=== PATIENT | male | born 1945 | race Caucasian/White ===

== ENCOUNTER 2016-10-19 09:12 | Inpatient (IN) | payer MEDICARE ==
[~2016-10-19] VITALS: Ht 180.3 cm; Wt 88.0 kg
[~2016-10-19 09:12] MED LIST: ASPIRIN EC81 M1 PO; AVODART0.5 MG PO; GLUCOPHAGE500 MG PO; HYDROCODON-ACE1 EAC3 PO; LIPITOR10 MG PO; LISINOPRIL5 MG PO; MAG-OXIDE400 MG PO; MIRALAX527 GM PO; PREVACID30 MG PO
[2016-10-19 10:25] LABS: BASOPHILS 0.1 % (0.0-2.0); EOSINOPHILS 0.1 % (0-7); HEMOGLOBIN 15.2 g/dL (13.5-17.5); IMMATURE GRANULOCYTES 0.5 % (0-5); LYMPHOCYTES 19.3 % (15-50); MCH 31.3 pg (26.0-34.0); MCHC 33.8 g/dL (31.0-37.0); MCV 92.6 fL (80.0-100.0); MEAN PLATELET VOLUME 10.8 fL (7.4-10.4); MONOCYTES 4.4 % (2-11); NEUTROPHILS 75.6 % (40-80); RBC 4.86 10x6/uL (4.20-6.10); WBC 14.4 10x3/uL (4.8-10.8)
[2016-10-19 10:27] LABS: PLATELET COUNT 239 10x3/uL (130-400)
[2016-10-19 10:46] LABS: APPEARANCE HAZY (CLEAR); BACTERIA FEW /hpf (NONE SEEN); BILIRUBIN NEGATIVE (NEGATIVE); COLOR YELLOW (YELLOW); EPITHELIAL CELLS 0-5 /hpf (0-5); GLUCOSE NEGATIVE (NEGATIVE); GRANULAR CAST RARE /lpf (NONE SEEN); HYALINE CAST 0-5 /lpf (NONE SEEN); KETONE NEGATIVE (NEGATIVE); LEUKOCYTE ESTERASE TRACE (NEGATIVE); MUCUS >1+ /lpf (NONE SEEN); NITRITE NEGATIVE (NEGATIVE); PROTEIN NEGATIVE (NEGATIVE); RED CELLS - URINE 0-5 /hpf (0-5); UROBILINOGEN NORMAL (NORMAL); WHITE CELLS - URINE 0-5 /hpf (0-5)
[2016-10-19 10:47] LABS: ALBUMIN 4.5 g/dL (3.4-5.0); ANION GAP 19.3 mmol/L (8-16); BILIRUBIN - TOTAL 0.56 mg/dL (0.2-1.3); CALCIUM 9.8 mg/dL (8.5-10.1); CARBON DIOXIDE 23.9 mmol/L (21.0-32.0); CREATININE - SERUM 1.4 mg/dL (0.6-1.3); POTASSIUM - SERUM 4.2 mmol/L (3.5-5.1); PROTEIN - SERUM 8.6 g/dL (6.4-8.2)
--- NOTE | 2016-10-19 12:48 | NUR ---
Patient Name: DARLENE MITCHELL Admission Status: ER Accout number: [id number] Admission Date: 10-19-2016 : 1945 Admission Diagnosis: SBO Attending: NAYELY Current LOS: 1 Anticipated DC Date: 10-22-2016 Planned Disposition: Home Primary Insurance: [employer] Discharge Planning Comments: Cm met with patient to complete initial discharge planning assessment. Patient gave consent to complete assessment. Patient reports he lives at home independently with his Tatyana Blas. He denied use of community resources or DME at home. Patient plans to return home at discharge. He denied needs for dc at this time. CM will continue to follow and assist with dc plan/needs. Shoeblack: Makenzie Squires RN, [facility] [phone] Is the patient Alert and Oriented? Yes * How many steps to enter\exit or inside your home? 2 * PCP Dr. Ferrell * Pharmacy [facility] [address] * Preadmission Environment Home with Family * ADLs Independent * Equipment None * List name and contact numbers for known caregivers / representatives who currently or will assist patient after discharge: Tatyana Blas - spouse - [phone] * Community resources currently utilized None * Additional services required to return to the preadmission environment? No * Can the patient safely return to the preadmission environment? Yes * Has this patient been hospitalized within the prior 30 days at any hospital? No
--- NOTE | 2016-10-19 13:49 | NUR ---
PATIENT TO ROOM AT THIS TIME. NGT INTACT AND CONNECTED TO LIWS. STATED NOT HURTING MUCH SINCE NGT HAS BEEN PUT IN. FAMILY AT BEDSIDE. PATIENT ADMITTED AND ASSESSED. NO COMPLAINTS AT THIS TIME. IV INTACT. CALL LIGHT WITHIN REACH.
[2016-10-19] MEDS ORDERED: NEURONTIN 400400 MG PO (13:50)
[2016-10-19 14:01] VITALS: BP 129/79; BMI 27.1
--- NOTE | 2016-10-19 15:00 | NUR ---
PATIENT IN BED WITH EYES CLOSED RESTING QUIETLY AT THIS TIME. IV INTACT. NGT INTACT. CALL LIGHT WITHIN REACH.
--- NOTE | 2016-10-19 16:20 | NUR ---
PATIENT IVF AND HEAD OF GLOBAL STRATEGIC PARTNERSHIPS SET UP. EXPLAINED HOW TO USE HEAD OF GLOBAL [employer]ATEGIC PARTNERSHIPS. VERBALIZED UNDERSTANDING. NO COMPLAINTS. CALL LIGHT WITHIN REACH.
--- NOTE | 2016-10-19 18:33 | NUR ---
PATIENT IN BED EYES CLOSED RESTING QUIETLY AT THIS TIME. IV INTACT. NGT INTACT AND TO LIWS. CALL LIGHT WITHIN REACH.
[2016-10-19 19:00] VITALS: BP 132/77
--- NOTE | 2016-10-20 01:30 | NUR ---
GOT CONFIRMATION FROM XRAY THAT NGT WAS CURLED IN STOMACH. MAYUR GAO AND MAYUR MONROE HELPED ME TO STRAIGHTED THE CURL OUT. PUT IN FOR ANOTHER KUB TO CHECK FOR PLACEMENT.
--- NOTE | 2016-10-20 02:08 | NUR ---
PATIENT COMING BACK FROM THE BATHROOM STATED THAT HIS NGT WAS LEAKING. STOPPED THE LEAK. DENIED FURTHER NEEDS AT THAT TIME. @1930. @2100 ADMINISTERED MEDICATION PRECRIBED. PATIENT ALERT AND ORIENTED. IS AT BEDSIDE. NO DISTRESS NOTED. DENIED FURTHER NEEDS AT THIS TIME. INTRUCTED TO CALL IF NEEDED ANYTHING. VERBALIZED UNDERSTANDING. BED LOW, LOCKED, CALL LIGHT IN REACH.
[2016-10-20 04:00] VITALS: BP 127/66
--- NOTE | 2016-10-20 04:56 | NUR ---
RESTING WITH EYES CLOSED, NO DISTRESS NOTED, NG TUBE IN PLACE, SR'S UP, CL IN REACH, AT BEDSIDE
[2016-10-20 06:04] LABS: BASOPHILS 0.1 % (0.0-2.0); EOSINOPHILS 1.2 % (0-7); HEMATOCRIT 37.1 % (42.0-54.0); IMMATURE GRANULOCYTES 0.5 % (0-5); LYMPHOCYTES 40.4 % (15-50); MCH 30.5 pg (26.0-34.0); MCHC 32.3 g/dL (31.0-37.0); MCV 94.2 fL (80.0-100.0); MEAN PLATELET VOLUME 10.8 fL (7.4-10.4); NEUTROPHILS 50.8 % (40-80); RBC 3.94 10x6/uL (4.20-6.10); RDW 14.3 % (11.5-14.5)
[2016-10-20 06:15] LABS: PLATELET COUNT 172 10x3/uL (130-400); WBC 8.5 10x3/uL (4.8-10.8)
[2016-10-20 06:27] LABS: ANION GAP 11.3 mmol/L (8-16); CALCIUM 8.1 mg/dL (8.5-10.1); CARBON DIOXIDE 28.7 mmol/L (21.0-32.0); CREATININE - SERUM 1.3 mg/dL (0.6-1.3)
[2016-10-20 08:04] VITALS: BP 117/62
--- NOTE | 2016-10-20 08:30 | NUR ---
ORAL CONTRAST BEING ADMINISTERED THROUGH PT'S NG TUBE AT THIS TIME. AT BEDSIDE. ASSESMENT PERFORMED PER FLOWSHEET. DENIES QUESTIONS OR CONCERNS AT THIS TIME. SCD'S APPLIED TO BILATERAL LOWER EXTREMETIES. CALL LIGHT IN REACH, WILL CONTINUE WITH PLAN OF CARE.
--- NOTE | 2016-10-20 09:25 | NUR ---
TAKEN TO CT SCAN SCAN AT THIS TIME. WILL MONITOR PT WHEN HE RETURNS TO THE ROOM.
[2016-10-20 12:11] VITALS: BP 154/76
[2016-10-20 15:10] VITALS: BP 109/91
[2016-10-20 15:33] VITALS: Ht 180.3 cm; Wt 88.0 kg
--- NOTE | 2016-10-20 22:50 | NUR ---
REC'D PATIENT SITTING UP IN BED. NO DISTRESS NOTED. RESP EVEN AN UNLABORED. TURNED SUCTION BACK ON AFTER ADMINISTERING MEDS @ 2100. ALSO STARTED HIS FLUIDS AGAIN AND SEWER SEPARATION DESIGNER. DENIED FURTHER NEEDS. INTRUCTED TO CALL IF NEEDED ANYTHING. VERBALIZED UNDERSTANDING. BED LOW, LOCKED, CALL LIGHT IN REACH. AT BEDSIDE.
[2016-10-21] VITALS: BP 124/69
--- NOTE | 2016-10-21 01:53 | NUR ---
FLUSHED NGT WITH 60CC OF WATER. ADMINISTERED MEDS PRESCRIBED. PATIENT RESTING COMFORTABLY. AT BEDSIDE. BED LOW, LOCKED, CALL LIGHT IN REACH.
--- NOTE | 2016-10-21 03:00 | NUR ---
PT RESTING IN BED WITH NO DISTRESS. RESPIRATIONS ARE EVEN AND UNLABORED. SIDE RAILS X 2. BED IS LOW. CALL LIGHT IS IN REACH.
[2016-10-21 04:00] VITALS: BP 122/64
[2016-10-21 06:34] LABS: BASOPHILS 0.3 % (0.0-2.0); EOSINOPHILS 1.1 % (0-7); HEMATOCRIT 35.1 % (42.0-54.0); HEMOGLOBIN 11.3 g/dL (13.5-17.5); IMMATURE GRANULOCYTES 0.3 % (0-5); LYMPHOCYTES 39.8 % (15-50); MCH 30.4 pg (26.0-34.0); MCHC 32.2 g/dL (31.0-37.0); MCV 94.4 fL (80.0-100.0); MEAN PLATELET VOLUME 10.9 fL (7.4-10.4); MONOCYTES 7.8 % (2-11); NEUTROPHILS 50.7 % (40-80); PLATELET COUNT 172 10x3/uL (130-400); RBC 3.72 10x6/uL (4.20-6.10); RDW 14.3 % (11.5-14.5)
[2016-10-21 06:58] LABS: ANION GAP 11.9 mmol/L (8-16); BILIRUBIN - TOTAL 0.5 mg/dL (0.2-1.3); CALCIUM 8.2 mg/dL (8.5-10.1); CARBON DIOXIDE 27.7 mmol/L (21.0-32.0); CREATININE - SERUM 1.2 mg/dL (0.6-1.3); POTASSIUM - SERUM 3.6 mmol/L (3.5-5.1)
[2016-10-21 07:00] LABS: ALBUMIN 2.9 g/dL (3.4-5.0); PROTEIN - SERUM 5.9 g/dL (6.4-8.2)
[2016-10-21 08:39] VITALS: BP 127/65
[2016-10-21 11:43] VITALS: BP 136/71
[2016-10-21 17:04] VITALS: BP 142/72
[2016-10-21 19:00] VITALS: BP 134/67
--- NOTE | 2016-10-21 21:56 | NUR ---
PATIENT RESTING IN BED. NO SIGNS OF DISTRESS NOTED. SAT UP TO SIDE OF THE BED TO TAKE MEDICATIONS. SCHEDULED MEDS GIVEN. SHIFT ASSESSMENT COMPLETED. DENIES ANY NEEDS AT THIS TIME. BED LOW. CALL LIGHT IN REACH. AT BEDSIDE.
[2016-10-22 04:00] VITALS: BP 126/63
--- NOTE | 2016-10-22 04:00 | NUR ---
PATIENT SLEEPING WITH NO DISTRESS NOTED. AGREE WITH EQUIPMENT MECHANIC SPECIALIST ASSESSMENT.
[2016-10-22 05:22] LABS: BASOPHILS 0.1 % (0.0-2.0); EOSINOPHILS 0.9 % (0-7); HEMATOCRIT 34.5 % (42.0-54.0); HEMOGLOBIN 11.2 g/dL (13.5-17.5); IMMATURE GRANULOCYTES 0.4 % (0-5); LYMPHOCYTES 33.1 % (15-50); MCH 30.4 pg (26.0-34.0); MCHC 32.5 g/dL (31.0-37.0); MCV 93.5 fL (80.0-100.0); MEAN PLATELET VOLUME 10.4 fL (7.4-10.4); MONOCYTES 7.5 % (2-11); PLATELET COUNT 157 10x3/uL (130-400); RBC 3.69 10x6/uL (4.20-6.10); RDW 13.9 % (11.5-14.5); WBC 7.9 10x3/uL (4.8-10.8)
[2016-10-22 05:41] LABS: ANION GAP 9.7 mmol/L (8-16); BILIRUBIN - TOTAL 0.6 mg/dL (0.2-1.3); CALCIUM 8.7 mg/dL (8.5-10.1); CARBON DIOXIDE 30.4 mmol/L (21.0-32.0); CREATININE - SERUM 1.1 mg/dL (0.6-1.3); POTASSIUM - SERUM 4.1 mmol/L (3.5-5.1); PROTEIN - SERUM 6.1 g/dL (6.4-8.2)
[2016-10-22 08:33] VITALS: BP 140/73
--- NOTE | 2016-10-22 10:53 | NUR ---
PATIENT IS AMBULATING IN THE SMITH WITH TICKET COLLECTOR OR USHER. GAIT STEADY. PATIENT REQUEST TO BE LEFT UNHOOKED.
[2016-10-22 12:00] VITALS: BP 165/87
[2016-10-22] MEDS ORDERED: LEVAQUIN500 MG PO (13:02)
[2016-10-22] MEDS ORDERED: FLAGYL500 MG PO (13:03)
--- NOTE | 2016-10-22 13:35 | NUR ---
CM REASSESSMENT NOTE: PATIENT IS DISCHARGING HOME TODAY. PATIENT REFUSED HOME HEALTH AND HAD NO OTHER NEEDS. PATIENTS WILL BE DRIVING HIM HOME AT DISCHARGE.
== END 2016-10-22 17:14 | disposition home or self-care (01) | DRG 390 ==
LOC: D.ER 09:12 → D.MS 11:46
PROVIDERS: Emergency Medicine; Family Medicine; Nurse Practitioner Acute Care; ADMIT Family Medicine
PROC: 0D9670Z Drainage of Stomach with Drainage Device, Via Natural or Artificial Opening (ICD-10-PCS; principal; 2016-10-19)
DX: K56.60 Unspecified intestinal obstruction (principal); K58.9 Irritable bowel syndrome, unspecified; K21.9 Gastro-esophageal reflux disease without esophagitis; E11.9 Type 2 diabetes mellitus without complications; Z87.891 Personal history of nicotine dependence

== ENCOUNTER → 2016-11-27 10:37 | Outpatient (CLI) | payer MEDICARE ==
[2016-10-20 15:33] VITALS: BMI 27.0
[~2016-11-27 10:37] MED LIST changes: +FLAGYL500 MG PO; +LEVAQUIN500 MG PO; +NEURONTIN 400400 MG PO
== END | disposition home or self-care (01) ==
LOC: D.RAD 10:30
DX: K56.60 Unspecified intestinal obstruction (principal)

== ENCOUNTER 2020-01-15 23:50 | Inpatient (IN) | payer MEDICARE ==
[~2020-01-15] VITALS: Ht 180.3 cm; Wt 79.4 kg
[2020-01-16] MEDS ORDERED: MAG-OX 400 MG400 MG PO (00:01)
[2020-01-16] MEDS ORDERED: LISINOPRIL2.5 MG PO (00:02)
[2020-01-16] MEDS ORDERED: FLOMAX0.4 MG PO (00:02)
[2020-01-16 00:44] LABS: CALC OSMOLALITY 286 mosm/kg (275-300); CARBON DIOXIDE 23.6 mmol/L (21.0-32.0); CHLORIDE - SERUM 103 mmol/L (98-107); CREATININE - SERUM 1.8 mg/dL (0.6-1.3); GLUCOSE 201 mg/dL (74-106); HEMATOCRIT 42.1 % (42.0-54.0); LYMPHOCYTES 38.4 % (15-50); MCH 30.8 pg (26.0-34.0); MCHC 33.3 g/dL (31.0-37.0); MCV 92.5 fL (80.0-100.0); MEAN PLATELET VOLUME 10.1 fL (7.4-10.4); NEUTROPHILS 58.5 % (40-80); PLATELET COUNT 188 10x3/uL (130-400); POTASSIUM - SERUM 4.7 mmol/L (3.5-5.1); RBC 4.55 10x6/uL (4.20-6.10); RDW 14.8 % (11.5-14.5); SODIUM 139 mmol/L (136-145); UREA NITROGEN 21 mg/dL (7-18); WBC 18.3 10x3/uL (4.8-10.8); eGFR NON AFRICAN AMERICAN 40 mL/min (90-120)
[2020-01-16 00:56] LABS: ALBUMIN 4.4 g/dL (3.4-5.0); ALKALINE PHOSPHATASE 127 U/L (30-120); ALT (SGPT) 19 U/L (10-68); BILIRUBIN - TOTAL 0.48 mg/dL (0.2-1.3); LIPASE 151 U/L (73-393); PRO BNP 188 pg/mL (0-125); PROTEIN - SERUM 7.9 g/dL (6.4-8.2); TROPONIN-I < 0.017 ng/mL (0.000-0.060)
[2020-01-16 01:39] VITALS: BP 128/64
[2020-01-16 02:48] VITALS: BP 137/68; BMI 24.4
--- NOTE | 2020-01-16 07:27 | NUR ---
PT LYING IN BED WHILE MAYUR PICKETT ON COURTROOM DEPUTY ADMINISTERED PRN PAIN MEDICATION AND NAUSEA MEDICATION. PT ABDOMEN IS DISTENDED AND FIRM, PT STATES "HURTS TO EVEN LAY HANDS ON MY STOMACH." ABDOMINAL SOUNDS HYPOACTIVE, IV IN LEFT FA PATENT. AREA IS CDI, NO SIGNS OF SWELLING NO REDNESS SEEN. LUNGS CTA. SPOUSE AT BEDSIDE, CL IN REACH NO NEEDS VOICED BY EITHER PT OR SPOUSE. CONTINUE WITH PLAN OF CARE
[2020-01-16 08:33] LABS: BACTERIA FEW /hpf (NEGATIVE); BILIRUBIN NEGATIVE (NEGATIVE); EPITHELIAL CELLS RARE /hpf (0-5); GLUCOSE NEGATIVE (NEGATIVE); KETONE NEGATIVE (NEGATIVE); NITRITE NEGATIVE (NEGATIVE); RED CELLS - URINE 0-5 /hpf (0-5); WHITE CELLS - URINE RARE /hpf (NEGATIVE)
[2020-01-16 09:31] VITALS: BP 134/68
--- NOTE | 2020-01-16 10:41 | NUR ---
I have reviewed this patient and I concur with the Shift Assessment completed by the Licensed Practical Nurse today this shift.
[2020-01-16 13:04] VITALS: Ht 180.3 cm; Wt 79.4 kg
[2020-01-16 14:02] VITALS: BP 127/69
[2020-01-16 18:40] VITALS: BP 115/60
--- NOTE | 2020-01-16 19:30 | NUR ---
PT REPORTS MODERATE HEARTBURN. INFORMED OF UPCOMING DOSE OF PROTONIX. PT ALSO REPORTS PAIN MEDICATION OVERPOWERS NAUSEA MED AND HE IS UNSURE IF HE'S BE ABLE TO TAKE IT. SUGGESTED PTP USE LOWER DOSE PAIN MED WITH ZOFRAN BEFORE CALLING DR. PT AGREED. STATES HE WILL LET ME KNOW WHEN HE IS READY FOR IT, WILL CONTINUE TO MONITOR.
[2020-01-16 20:34] VITALS: BP 119/65
[2020-01-17 00:35] VITALS: BP 115/62
[2020-01-17 04:00] VITALS: BP 123/60
[2020-01-17 05:22] LABS: BASOPHILS 0.1 % (0-2); EOSINOPHILS 0.5 % (0-7); HEMATOCRIT 34.1 % (42.0-54.0); IMMATURE GRANULOCYTES 0.2 % (0-5); LYMPHOCYTES 56.3 % (15-50); MCH 30.9 pg (26.0-34.0); MEAN PLATELET VOLUME 10.1 fL (7.4-10.4); MONOCYTES 6.2 % (2-11); NEUTROPHILS 36.7 % (40-80); RDW 15.1 % (11.5-14.5)
[2020-01-17 05:26] LABS: HEMOGLOBIN 10.9 g/dL (13.5-17.5); MCV 96.6 fL (80.0-100.0); PLATELET COUNT 125 10x3/uL (130-400); RBC 3.53 10x6/uL (4.20-6.10); WBC 12.1 10x3/uL (4.8-10.8)
[2020-01-17 05:56] LABS: ANION GAP 9.7 mmol/L (8-16); BILIRUBIN - TOTAL 0.75 mg/dL (0.2-1.3); CALCIUM 7.9 mg/dL (8.5-10.1); CARBON DIOXIDE 26.3 mmol/L (21.0-32.0); CREATININE - SERUM 1.4 mg/dL (0.6-1.3)
[2020-01-17 06:06] LABS: ALBUMIN 2.9 g/dL (3.4-5.0); PROTEIN - SERUM 5.7 g/dL (6.4-8.2)
--- NOTE | 2020-01-17 07:02 | NUR ---
I have reviewed this patient and I concur with the Shift Assessment completed by the Licensed Practical Nurse today this shift.
--- NOTE | 2020-01-17 07:02 | NUR ---
I have reviewed this patient and I concur with the Shift Assessment completed by the Licensed Practical Nurse today this shift.
[2020-01-17 08:00] VITALS: BP 131/72
--- NOTE | 2020-01-17 10:00 | NUR ---
NG-TUBE CLAMPED OFF AT THIS TIME. HUBSAND AND C/L IN REACH AT BEDSIDE.
[2020-01-17 12:00] VITALS: BP 140/60
[2020-01-17 16:00] VITALS: BP 150/76
--- NOTE | 2020-01-17 19:09 | NUR ---
LYING IN BED,WITHOUT NEEDS. FAMILY AT BEDSIDE
[2020-01-17 20:30] VITALS: BP 138/74
--- NOTE | 2020-01-17 22:24 | NUR ---
SPOKE WITH DR. ANTHONY PER PT REQUEST TO REMOVED NGT. BOWEL SOUNDS ACTIVE, PASSING MARIANN AND STOOLS. NO N/V/PAIN. TOLERATING CLEAR LIQUID DIET. NGT DISCONNECTED FROM SUCTION AND CLAMPED SINCE 10AM. GABRIELLE STATED NGT MAY BE REMOVED, BUT TO INFORM PT IF S/SX OF BOWEL REOBSTRUCTION OCCUR, A NEW ONE WILL BE INSERTED.
--- NOTE | 2020-01-18 00:04 | NUR ---
NGT REMOVED PER REQUEST.
[2020-01-18 00:14] VITALS: BP 108/55
--- NOTE | 2020-01-18 02:20 | NUR ---
I have reviewed this patient and I concur with the Shift Assessment completed by the Licensed Practical Nurse today this shift.
[2020-01-18 06:10] VITALS: BP 106/58
[2020-01-18 06:46] LABS: HEMATOCRIT 32.2 % (42.0-54.0); HEMOGLOBIN 10.6 g/dL (13.5-17.5); MCH 31.5 pg (26.0-34.0); MCHC 32.9 g/dL (31.0-37.0); MCV 95.5 fL (80.0-100.0); MEAN PLATELET VOLUME 10.3 fL (7.4-10.4); PLATELET COUNT 119 10x3/uL (130-400); RBC 3.37 10x6/uL (4.20-6.10); RDW 14.5 % (11.5-14.5); WBC 9.3 10x3/uL (4.8-10.8)
[2020-01-18 06:55] LABS: ALBUMIN 2.9 g/dL (3.4-5.0); BILIRUBIN - TOTAL 0.84 mg/dL (0.2-1.3); CALCIUM 7.8 mg/dL (8.5-10.1); CARBON DIOXIDE 28.2 mmol/L (21.0-32.0); CREATININE - SERUM 1.4 mg/dL (0.6-1.3); POTASSIUM - SERUM 4.2 mmol/L (3.5-5.1); PROTEIN - SERUM 5.6 g/dL (6.4-8.2)
--- NOTE | 2020-01-18 07:44 | NUR ---
HE IS ALERT, TALKING. HIS IS AT THE BEDSIDE. DENIES ANY PAIN. HE HAS HAD BM PAST PM. THE CALL LIGHT IS WITHIN REACH.
[2020-01-18 08:00] VITALS: BP 156/79
[2020-01-18 11:22] LABS: EOSINOPHILS 1 % (0-7); LYMPHOCYTES 59 % (15-50); MONOCYTES 10 % (2-11); NEUTROPHILS 30 % (40-80); PLATELET ESTIMATE NORMAL; ROULEAUX OCC
[2020-01-18 12:00] VITALS: BP 153/75
[2020-01-18 16:00] VITALS: BP 145/78
[2020-01-18 20:00] VITALS: BP 121/56
[2020-01-19] VITALS: BP 122/59
--- NOTE | 2020-01-19 02:59 | NUR ---
PT RESTING IN BED. EYES CLOSED. NO SIGNS OF DISTRESS. BREATHING EVEN AND UNLABORED. IV SITE LT FA DRESSING CLEAN DRY AND INTACT. NO SIGNS OF INFECTION OR INFULTRATION. LUNG SOUNDS CLEAR. BOWEL SOUNDS ACTIVE. SKIN CLEAN DRY AND INTACT. AT BEDSIDE. WILL CONTINUE PLAN OF CARE. CALL LIGHT IN REACH. BED LOWERED AND LOCKED. BED RAILS UPX1
--- NOTE | 2020-01-19 03:44 | NUR ---
I have reviewed this patient and I concur with the Shift Assessment completed by the Licensed Practical Nurse today this shift.
[2020-01-19 04:00] VITALS: BP 122/59
[2020-01-19 05:36] LABS: BASOPHILS 0.1 % (0-2); HEMATOCRIT 32.4 % (42.0-54.0); HEMOGLOBIN 10.5 g/dL (13.5-17.5); IMMATURE GRANULOCYTES 0.3 % (0-5); LYMPHOCYTES 67.5 % (15-50); MCH 30.3 pg (26.0-34.0); MCHC 32.4 g/dL (31.0-37.0); MCV 93.6 fL (80.0-100.0); MEAN PLATELET VOLUME 10.3 fL (7.4-10.4); MONOCYTES 5.8 % (2-11); NEUTROPHILS 25.3 % (40-80); PLATELET COUNT 128 10x3/uL (130-400); RBC 3.46 10x6/uL (4.20-6.10); RDW 14.2 % (11.5-14.5); WBC 11.4 10x3/uL (4.8-10.8)
[2020-01-19 05:41] LABS: ANION GAP 8.9 mmol/L (8-16); BILIRUBIN - TOTAL 0.4 mg/dL (0.2-1.3); CARBON DIOXIDE 28.2 mmol/L (21.0-32.0); CREATININE - SERUM 1.4 mg/dL (0.6-1.3); POTASSIUM - SERUM 4.1 mmol/L (3.5-5.1); PROTEIN - SERUM 5.7 g/dL (6.4-8.2)
--- NOTE | 2020-01-19 10:05 | NUR ---
SAYS DR. BORREGO SAYS HE CAN GO HOME, NO DISCHARGE ORDER OF YET. HIS IS AT THE BEDSIDE. THE CALL LIGHT IS WITHIN REACH.
--- NOTE | 2020-01-19 10:50 | MORECARE ---
CASE MANAGEMENT DISCHARGE SUMMARY PATIENT: DARLENE MITCHELL UNIT: [id number] ADM DATE: 01/16/20 AGE: 74 : [birth year] SEX: M ROOM/BED: D.2227 AUTHOR: AMBIKADOC PHYSICIAN: REFERRING PHYSICIAN: MAKENNA SMALLWOOD MD DATE OF SERVICE: 01/19/20 Discharge Plan Patient Name: DARLENE MITCHELL Facility: [facility]:[place] : 1945 Planned Disposition: Anticipated Discharge Date: Discharge Date: Expected LOS: Initial Reviewer: [email or web address] Initial Review Date: 01/16/2020 Generated: 01/19/20 11:50 am Comments DCP- Discharge Planning Updated by [email or web address]: Leonila Blas on 01/19/20 9:[address] Patient Name: DARLENE MITCHELL Admission Status: ER Accout number: [id number] Admission Date: 01-16-2020 : 1945 Admission Diagnosis:UNSPECIFIED ABDOMINAL PAIN Attending: MAKENNA SMALLWOOD Current LOS: 3 Anticipated DC Date: Planned Disposition: Primary Insurance: A[employer] MEDICARE PPO or HMO Discharge Planning Comments: CM met with patient at bedside after explaining CM role and obtaining verbal consent. CM discussed availability / needs of home health, REHAB and medical equipment. PATIENT DENIES ANY DISCHARGE NEEDS. IMM SIGNED. AT BEDSIDE. ANTICIPATE DC TO HOME TODAY. Wave Guide Assembler: Leonila Blas DCPIA - Discharge Planning Initial Assessment Updated by [email or web address]: Leonila Blas on 01/19/20 10:46 am * Is the patient Alert and Oriented? Yes * PCP CL * Pharmacy [facility] * Preadmission Environment Home with Family * ADLs Independent * Additional services required to return to the preadmission environment? No * Can the patient safely return to the preadmission environment? Yes * Has this patient been hospitalized within the prior 30 days at any hospital? No Coverage Notice Reviewer: [id number] - Leonila Blas Notice Issued Date-Time: 01/19/2020 10:47 Notice Type: IM Discharge Notice Notice Delivered To: Patient Relationship to Patient: Budget Manager Name: Delivery Method: HAND - Hand Delivered Rosie Days: Prior Verbal Notification: Recipient Understood Notice: Yes Recipient Signature: Yes Med Rec Note Co-signed by Attending: Coverage Notice Comment: Patient Name: DARLENE MITCHELL Page [phone] at 1050 All edits/amendments must be made on the electronic document DICTATION DATE: 01/19/20 1050 GRID TRIMMER: LESLIE 01/19/20 1050 RPT#: [id number] DC DATE: STATUS: ADM IN [facility] [address] [place] [address] END OF REPORT
[2020-01-19 11:05] VITALS: BP 130/69
--- NOTE | 2020-01-19 14:09 | NUR ---
IV TAKEN OUT, DISCHARGE PAPERWORK GONE OVER WITH THE PATIENT AND HIS . HE WAS TAKEN TO FRONT DOOR VIA WHEELCHAIR.
--- NOTE | 2020-01-20 16:33 | MORECARE ---
CASE MANAGEMENT DISCHARGE SUMMARY PATIENT: DARLENE MITCHELL UNIT: [id number] ADM DATE: 01/16/20 AGE: 74 : 47 SEX: M ROOM/BED: D.2227 AUTHOR: AMBIKA,DOC PHYSICIAN: REFERRING PHYSICIAN: MAKENNA SMALLWOOD MD DATE OF SERVICE: 01/20/20 Discharge Plan Patient Name: DARLENE MITCHELL Facility: [facility]:[place] : 1945 Planned Disposition: Anticipated Discharge Date: Discharge Date: 01/19/2020 Expected LOS: Initial Reviewer: [email or web address] Initial Review Date: 01/16/2020 Generated: 01/20/20 5:32 pm Comments DCP- Discharge Planning Updated by [email or web address]: Leonila Blas on 01/19/20 9:[address] Patient Name: DARLENE MITCHELL Admission Status: ER Accout number: [id number] Admission Date: 01-16-2020 : 1945 Admission Diagnosis:UNSPECIFIED ABDOMINAL PAIN Attending: MAKENNA SMALLWOOD Current LOS: 3 Anticipated DC Date: Planned Disposition: Primary Insurance: [employer] MEDICARE PPO or HMO Discharge Planning Comments: CM met with patient at bedside after explaining CM role and obtaining verbal consent. CM discussed availability / needs of home health, REHAB and medical equipment. PATIENT DENIES ANY DISCHARGE NEEDS. IMM SIGNED. AT BEDSIDE. ANTICIPATE DC TO HOME TODAY. Assembler Leather Goods: Leonila Blas DCPIA - Discharge Planning Initial Assessment Updated by [email or web address]: Leonila Blas on 01/19/20 10:46 am * Is the patient Alert and Oriented? Yes * PCP CL * Pharmacy [facility] * Preadmission Environment Home with Family * ADLs Independent * Additional services required to return to the preadmission environment? No * Can the patient safely return to the preadmission environment? Yes * Has this patient been hospitalized within the prior 30 days at any hospital? No Coverage Notice Reviewer: [id number] - Leonila Blas Notice Issued Date-Time: 01/19/2020 10:47 Notice Type: IM Discharge Notice Notice Delivered To: Patient Relationship to Patient: Senior Director Creative Services Name: Delivery Method: HAND - Hand Delivered Rosie Days: Prior Verbal Notification: Recipient Understood Notice: Yes Recipient Signature: Yes Med Rec Note Co-signed by Attending: Coverage Notice Comment: Last DP export: 01/19/20 9:50 a Patient Name: DARLENE MITCHELL Page [phone] at 1633 All edits/amendments must be made on the electronic document DICTATION DATE: 01/20/201631 BALL SORTER: LESLIE 01/20/20 1632 RPT#: [id number] DC DATE:01/19/20 STATUS: DIS IN [facility] [address] [place] [address] END OF REPORT
== END 2020-01-19 14:10 | disposition home or self-care (01) | DRG 389 ==
LOC: D.ER 23:50 → D.MS 01-16 00:34
PROVIDERS: Family Medicine; ADMIT Family Medicine; ATTEND Family Medicine
DX: K56.609 Unspecified intestinal obstruction, unspecified as to partial versus complete obstruction (principal); N17.9 Acute kidney failure, unspecified; K57.32 Diverticulitis of large intestine without perforation or abscess without bleeding; R65.10 Systemic inflammatory response syndrome (SIRS) of non-infectious origin without acute organ dysfunction; E86.0 Dehydration; N13.9 Obstructive and reflux uropathy, unspecified; E11.65 Type 2 diabetes mellitus with hyperglycemia

== ENCOUNTER 2020-02-03 09:46 | Inpatient (IN) | payer MEDICARE ==
[~2020-02-03] VITALS: Ht 180.3 cm; Wt 81.1 kg
[~2020-02-03 09:46] MED LIST changes: +FLOMAX0.4 MG PO; +LISINOPRIL2.5 MG PO; +MAG-OX 400 MG400 MG PO
[2020-02-03 10:07] LABS: BILIRUBIN NEGATIVE (NEGATIVE); GLUCOSE NEGATIVE (NEGATIVE); KETONE NEGATIVE (NEGATIVE); NITRITE NEGATIVE (NEGATIVE); UROBILINOGEN NORMAL (NORMAL)
[2020-02-03 10:08] LABS: BACTERIA FEW /hpf (NEGATIVE); EPITHELIAL CELLS 0-5 /hpf (0-5); RED CELLS - URINE 0-5 /hpf (0-5)
[2020-02-03 10:15] LABS: BASOPHILS 0.1 % (0-2); EOSINOPHILS 0.1 % (0-7); HEMATOCRIT 40.3 % (42.0-54.0); HEMOGLOBIN 13.4 g/dL (13.5-17.5); IMMATURE GRANULOCYTES 0.4 % (0-5); LYMPHOCYTES 29.7 % (15-50); MCH 31.6 pg (26.0-34.0); MCHC 33.3 g/dL (31.0-37.0); MONOCYTES 3.9 % (2-11); NEUTROPHILS 65.8 % (40-80); RBC 4.24 10x6/uL (4.20-6.10); RDW 14.4 % (11.5-14.5); WBC 16.6 10x3/uL (4.8-10.8)
[2020-02-03 10:16] LABS: PLATELET COUNT 159 10x3/uL (130-400)
[2020-02-03 10:19] LABS: ANION GAP 13.7 mmol/L (8-16); CARBON DIOXIDE 27.5 mmol/L (21.0-32.0); CREATININE - SERUM 1.7 mg/dL (0.6-1.3); POTASSIUM - SERUM 4.2 mmol/L (3.5-5.1)
[2020-02-03 10:25] LABS: ALBUMIN 3.7 g/dL (3.4-5.0); BILIRUBIN - TOTAL 1.8 mg/dL (0.2-1.3); PROTEIN - SERUM 7.5 g/dL (6.4-8.2)
[2020-02-03 12:00] VITALS: BP 114/69
[2020-02-03 15:06] VITALS: BP 114/69; Ht 180.3 cm; Wt 81.1 kg
--- NOTE | 2020-02-03 15:50 | NUR ---
PATIENT ADMITTED TO ROOM 2231. ADMISSION COMPLETE. FALL PRECAUTIONS IN PLACE. BED LOW. CALL TSANG AND PERSONAL ITEMS IN REACH. AT BEDSIDE. WILL CONTINUE TO MONITOR.
[2020-02-03 16:30] VITALS: BP 114/69
[2020-02-03 20:00] VITALS: BP 102/60
--- NOTE | 2020-02-03 20:30 | NUR ---
A&O X 4. AT BS. REPORTS MILD PAIN TO LEFT FLANK. NO FURTHER NEEDS VOICED, CTM.
[2020-02-04 01:20] VITALS: BP 91/45
--- NOTE | 2020-02-04 01:22 | NUR ---
BP 91/45, ASYMPTOMATIC. A&O X 4. HR 50 BPM. REPORTS PACEMAKER IS SET TO 70s. SHERIDAN REPORTS NO TELEMETRY MONITORS ARE AVAILABLE FOR THIS PT AT THIS TIME, MONITOR CLOSELY.
--- NOTE | 2020-02-04 03:04 | NUR ---
I have reviewed this patient and I concur with the Shift Assessment completed by the Licensed Practical Nurse today this shift.
[2020-02-04 04:22] VITALS: BP 90/49
[2020-02-04 06:56] LABS: HEMATOCRIT 34.2 % (42.0-54.0); HEMOGLOBIN 11.4 g/dL (13.5-17.5); LYMPHOCYTES 43.8 % (15-50); MCH 31.7 pg (26.0-34.0); MCHC 33.3 g/dL (31.0-37.0); MEAN PLATELET VOLUME 9.8 fL (7.4-10.4); NEUTROPHILS 52.7 % (40-80); PLATELET COUNT 143 10x3/uL (130-400); RDW 14.1 % (11.5-14.5)
[2020-02-04 07:07] LABS: WBC 10.5 10x3/uL (4.8-10.8)
[2020-02-04 07:08] LABS: ANION GAP 10.8 mmol/L (8-16); CALCIUM 8.3 mg/dL (8.5-10.1); CARBON DIOXIDE 26.6 mmol/L (21.0-32.0); CREATININE - SERUM 1.6 mg/dL (0.6-1.3); POTASSIUM - SERUM 4.4 mmol/L (3.5-5.1)
--- NOTE | 2020-02-04 11:21 | NUR ---
PT ALERT X 4. BREATH SOUNDS CLEAR BILAT. IV TO LEFT FOREARM, PATENT, DRESSING CDI. PT REPORTING NO PAIN THIS MORNING, BUT CONTINUES TO HAVE BURNING WITH URINATION. FAMILY AT BEDSIDE. BED LOW, CALL LIGHT IN REACH. NO OTHER NEEDS AT THIS TIME.
[2020-02-04 14:02] VITALS: BP 121/69
[2020-02-04 18:21] VITALS: BP 124/74
--- NOTE | 2020-02-04 19:00 | NUR ---
BEDSIDE REPORT RECEIVED AND CARE OF PT ASSUMED. PT LYING IN HIGH OVIEDO'S POSITION VISITING WITH SPOUSE. IV TO LEFT FA PATENT WITH NS INFUSING AT 125 ML/HR. WILL MONITOR FOR NEEDS.
[2020-02-04 20:00] VITALS: BP 106/61
--- NOTE | 2020-02-04 21:01 | NUR ---
HS MEDICATIONS GIVEN. FSBS 173 THIS CHECK REQUIRING COVERAGE WITH 2 UNITS OF INSULIN PER SLIDING SCALE.
--- NOTE | 2020-02-04 21:20 | NUR ---
GAVE HS SNACK: SF COOKIES AND APPLESAUCE PER DIET ORDER.
[2020-02-05 04:00] VITALS: BP 112/57
[2020-02-05 09:22] LABS: HEMOGLOBIN 11.2 g/dL (13.5-17.5); LYMPHOCYTES 48.2 % (15-50); MCH 31.2 pg (26.0-34.0); MCHC 32.9 g/dL (31.0-37.0); MCV 94.7 fL (80.0-100.0); MEAN PLATELET VOLUME 9.5 fL (7.4-10.4); NEUTROPHILS 47.1 % (40-80); PLATELET COUNT 148 10x3/uL (130-400); RBC 3.59 10x6/uL (4.20-6.10); RDW 13.9 % (11.5-14.5)
[2020-02-05 09:24] VITALS: BP 139/76
[2020-02-05 09:24] LABS: WBC 6.7 10x3/uL (4.8-10.8)
[2020-02-05 09:35] LABS: ANION GAP 13.3 mmol/L (8-16); CALCIUM 8.2 mg/dL (8.5-10.1); CARBON DIOXIDE 22.7 mmol/L (21.0-32.0); CREATININE - SERUM 1.5 mg/dL (0.6-1.3); MAGNESIUM - SERUM 1.9 mg/dL (1.8-2.4); PHOSPHOROUS 2.9 mg/dL (2.5-4.9)
--- NOTE | 2020-02-05 12:39 | NUR ---
I have reviewed this patient and I concur with the Shift Assessment completed by the Licensed Practical Nurse today this shift.
[2020-02-05 12:54] VITALS: BP 154/82
[2020-02-05] MEDS ORDERED: LEVOFLOXACIN500 MG PO (14:13)
--- NOTE | 2020-02-05 15:15 | NUR ---
DISCHARGE PAPERS GIVEN, QUESTIONS ANSWERED, IV REMOVED TIP INTACT, DICHARGED WITH BELONGING PER WC
== END 2020-02-05 15:33 | disposition home or self-care (01) | DRG 690 ==
LOC: D.ER 09:46 → D.MS 12:03 → D.EDHOLD 12:03 → D.MS 13:54
PROVIDERS: Family Medicine; ADMIT Family Medicine Adult Medicine; ATTEND Family Medicine Adult Medicine
DX: N10 Acute pyelonephritis (principal); N17.9 Acute kidney failure, unspecified; E11.65 Type 2 diabetes mellitus with hyperglycemia; R00.1 Bradycardia, unspecified; G47.33 Obstructive sleep apnea (adult) (pediatric); G89.29 Other chronic pain; N40.0 Benign prostatic hyperplasia without lower urinary tract symptoms; Z95.0 Presence of cardiac pacemaker

== ENCOUNTER → 2020-03-26 12:30 | Outpatient (CLI) | payer MEDICARE ==
[2020-02-03 15:06] VITALS: BMI 23.7
[~2020-03-26 12:30] MED LIST changes: +LEVOFLOXACIN500 MG PO
== END | disposition home or self-care (01) ==
LOC: D.LAB 12:30
PROVIDERS: ATTEND Family Medicine
DX: Z01.818 Encounter for other preprocedural examination (principal); Z11.59 Encounter for screening for other viral diseases

== ENCOUNTER → 2020-03-28 10:07 | Outpatient (CLI) | payer MEDICARE ==
[2020-02-03 15:06] VITALS: BMI 23.7
== END | disposition home or self-care (01) ==
LOC: D.RT 10:07
PROVIDERS: ATTEND Family Medicine
DX: Z87.891 Personal history of nicotine dependence (principal)

== ENCOUNTER 2020-03-29 16:14 | Inpatient (IN) | payer MEDICARE ==
[~2020-03-29] VITALS: Ht 180.3 cm; Wt 76.0 kg
[2020-03-29 17:07] LABS: BASOPHILS 0 % (0-2); EOSINOPHILS 0 % (0-7); HEMATOCRIT 23.6 % (42.0-54.0); HEMOGLOBIN 7.9 g/dL (13.5-17.5); IMMATURE GRANULOCYTES 1.1 % (0-5); LYMPHOCYTES 60.7 % (15-50); MCH 30.2 pg (26.0-34.0); MCHC 33.5 g/dL (31.0-37.0); MCV 90.1 fL (80.0-100.0); MEAN PLATELET VOLUME 11.6 fL (7.4-10.4); MONOCYTES 14.2 % (2-11); RBC 2.62 10x6/uL (4.20-6.10); WBC 2.8 10x3/uL (4.8-10.8)
[2020-03-29 17:09] LABS: BILIRUBIN NEGATIVE (NEGATIVE); KETONE NEGATIVE (NEGATIVE); NITRITE NEGATIVE (NEGATIVE); UROBILINOGEN NORMAL (NORMAL)
[2020-03-29 17:28] LABS: ALBUMIN 3.2 g/dL (3.4-5.0); ALKALINE PHOSPHATASE 96 U/L (30-120); ALT (SGPT) 30 U/L (10-68); AMYLASE - SERUM 72 U/L (25-115); BILIRUBIN - TOTAL 0.34 mg/dL (0.2-1.3); CARBON DIOXIDE 18.6 mmol/L (21.0-32.0); CHLORIDE - SERUM 102 mmol/L (98-107); CREATININE - SERUM 2.6 mg/dL (0.6-1.3); LIPASE 264 U/L (73-393); PROTEIN - SERUM 6.5 g/dL (6.4-8.2); SODIUM 133 mmol/L (136-145); UREA NITROGEN 52 mg/dL (7-18); eGFR NON AFRICAN AMERICAN 26 mL/min (90-120)
[2020-03-29 17:35] VITALS: BP 89/53
[2020-03-29 17:39] LABS: CALC OSMOLALITY 279 mosm/kg (275-300); GLUCOSE 107 mg/dL (74-106); POTASSIUM - SERUM 6.7 mmol/L (3.5-5.1); TROPONIN-I < 0.017 ng/mL (0.000-0.060)
[2020-03-29 18:00] VITALS: BP 93/48
[2020-03-29 18:11] LABS: PLATELET COUNT 38 10x3/uL (130-400)
--- NOTE | 2020-03-29 18:11 | NUR ---
CRITICAL LAB: PLT COUNT 38, ENRIQUE GOLDSTEIN AND MAYUR LEACH NOTIFIED
[2020-03-29 18:12] LABS: PLATELET ESTIMATE DECREASED
[2020-03-29 18:30] VITALS: BP 94/49
--- NOTE | 2020-03-29 18:55 | NUR ---
OCCULT BLOOD STOOL GUAIAC - NEG.
[2020-03-29 19:00] VITALS: BP 99/54
--- NOTE | 2020-03-29 20:39 | NUR ---
BLOOD CONSENTS SIGNED BY PT'S A THIS TIME.
[2020-03-29 20:43] VITALS: BP 91/49
--- NOTE | 2020-03-29 22:30 | NUR ---
PT ARRIVED VIA STRETCHER TO THIS ROOM FROM ER
--- NOTE | 2020-03-29 22:35 | NUR ---
TRANSFERED TO 2110 DUE TO ANTS IN THE ROOM
--- NOTE | 2020-03-29 23:30 | NUR ---
PT HAS STARTED RECIEVING BLOOD WITH NO REACTION
[2020-03-30 01:01] LABS: HEMATOCRIT 21.6 % (42.0-54.0)
[2020-03-30 01:05] LABS: HEMOGLOBIN 7.2 g/dL (13.5-17.5)
[2020-03-30 04:00] VITALS: BP 90/48
[2020-03-30 06:33] LABS: % SATURATION 38 % (15-55); IRON 66 ug/dl (35-150); TOTAL IRON BIND CAPACITY 173 ug/dl (260-445); UNSAT IRON BIND CAPACITY 107 ug/dl (150-375)
[2020-03-30 06:38] LABS: BASOPHILS 0 % (0-2); EOSINOPHILS 0 % (0-7); HEMATOCRIT 21.8 % (42.0-54.0); MCH 29.7 pg (26.0-34.0); MCHC 32.6 g/dL (31.0-37.0); MCV 91.2 fL (80.0-100.0); MEAN PLATELET VOLUME 13.1 fL (7.4-10.4); MONOCYTES 16.9 % (2-11); NEUTROPHILS 12.1 % (40-80); RBC 2.39 10x6/uL (4.20-6.10); RDW 16.2 % (11.5-14.5)
[2020-03-30 06:45] LABS: HEMOGLOBIN 7.1 g/dL (13.5-17.5); PLATELET COUNT 28 10x3/uL (130-400); WBC 1.8 10x3/uL (4.8-10.8)
[2020-03-30 07:14] LABS: APTT 30.4 SECONDS (22.8-39.4); INR 1.19 (0.85-1.17)
--- NOTE | 2020-03-30 07:15 | NUR ---
RECEIVE BEDSIDE SHIFT REPORT. RESTING IN BED WITH EYES CLOSED. NO SIGNS OF DISTRESS. WILL CONTINUE PLAN OF CARE AND SAFETY PRECAUTIONS.
--- NOTE | 2020-03-30 07:39 | NUR ---
CALLED ENRIQUE MANDUJANO FOR CRITICAL LABS. NEW ORDER PLACED FOR 1 UNIT PRBC. HEMOGLOBIN 7.1, WBC 1.8, PLATELETS 28. WILL CONTINUE TO MONITOR.
[2020-03-30 07:51] LABS: ALBUMIN 2.6 g/dL (3.4-5.0); ALKALINE PHOSPHATASE 83 U/L (30-120); ALT (SGPT) 26 U/L (10-68); BILIRUBIN - TOTAL 0.58 mg/dL (0.2-1.3); CALC OSMOLALITY 281 mosm/kg (275-300); CARBON DIOXIDE 19.6 mmol/L (21.0-32.0); CHLORIDE - SERUM 107 mmol/L (98-107); CREATININE - SERUM 2.2 mg/dL (0.6-1.3); FERRITIN 579 ng/mL (3-244); GLUCOSE 97 mg/dL (74-106); MAGNESIUM - SERUM 2.6 mg/dL (1.8-2.4); PHOSPHOROUS 3.7 mg/dL (2.5-4.9); PRO BNP 1022 pg/mL (0-125); PROTEIN - SERUM 5.5 g/dL (6.4-8.2); SODIUM 135 mmol/L (136-145); UREA NITROGEN 46 mg/dL (7-18); eGFR NON AFRICAN AMERICAN 31 mL/min (90-120)
[2020-03-30 08:06] LABS: TROPONIN-I < 0.017 ng/mL (0.000-0.060)
[2020-03-30 08:09] LABS: POTASSIUM - SERUM 6.3 mmol/L (3.5-5.1)
[2020-03-30 10:01] VITALS: BP 109/51
[2020-03-30 10:42] LABS: HEMATOCRIT 21.8 % (42.0-54.0)
[2020-03-30 11:03] LABS: HEMOGLOBIN 7.1 g/dL (13.5-17.5)
--- NOTE | 2020-03-30 11:49 | NUR ---
SPOKE WITH DR. ALMENDAREZ ABOUT BLADDER SCAN. IF GREATER THAN 250ML DO AN IN AND OUT CATH. REPEAT SCAN IN 6-8HRS AND DO ANOTHER IN AND OUT CATH. IF PT CONTINUES TO HAVE RETAINED URINE THEN PLACE A VIEIRA CATHETER.
--- NOTE | 2020-03-30 12:18 | NUR ---
TRANSFERRED TO 2202 FOR NEUTROPENIC PRECAUTIONS VIA BED. REMAINS FREE FROM INJURY. REPORT GIVEN TO MAYUR LÓPEZ AT 1130. CHART TRANSFERRED WITH PATIENT.
[2020-03-30 13:54] LABS: HEMATOCRIT 23.1 % (42.0-54.0)
[2020-03-30 13:59] LABS: HEMOGLOBIN 7.4 g/dL (13.5-17.5)
[2020-03-30 14:45] VITALS: BP 103/50
--- NOTE | 2020-03-30 15:35 | NUR ---
BLOOD GOING. PT TOLERATING WELL. BLADDER SCAN COMPLETED. 107 ML AFTER EMPTING BLADDER IN BATHROOM. CL IN REACH. WCTM
[2020-03-30 15:38] VITALS: BP 103/50
[2020-03-30 18:51] VITALS: BP 97/49
[2020-03-30 20:02] LABS: HEMATOCRIT 22.6 % (42.0-54.0)
[2020-03-30 20:20] LABS: POTASSIUM - SERUM 5.5 mmol/L (3.5-5.1)
[2020-03-30 20:26] LABS: HEMOGLOBIN 7.4 g/dL (13.5-17.5)
[2020-03-30 22:04] VITALS: BP 103/53
--- NOTE | 2020-03-30 23:54 | NUR ---
CALL TO DR GARVEY WITH LAB RESULT HGB 7.[address] HIM . DR RAMIREZ RETRUNED CALL WITH NEW ORDERS OF 20MG LASIX IV NOW AND GIVE ONE UNIT OF PACKED RED BLOOD CELLS. ORDERS PLACED
[2020-03-31 03:09] VITALS: BP 105/54
--- NOTE | 2020-03-31 04:02 | NUR ---
UNIT OF PACKED RED BLOOD CELLS STARTED AT 0035 END TIME 0250 V/S STABLE AT 97.4, 50, 16, 105/52. PERMED OF BENADRAL GIVEN PER ORDERS RESTING AT THIS TIME WITH NO NEEDS CALL LIGHT IN REACH.
[2020-03-31 05:22] LABS: BASOPHILS 0.3 % (0-2); EOSINOPHILS 0 % (0-7); HEMOGLOBIN 8.1 g/dL (13.5-17.5); IMMATURE GRANULOCYTES 1.2 % (0-5); LYMPHOCYTES 63.6 % (15-50); MCH 29.9 pg (26.0-34.0); MCHC 32.4 g/dL (31.0-37.0); MCV 92.3 fL (80.0-100.0); MEAN PLATELET VOLUME 11.7 fL (7.4-10.4); MONOCYTES 20.1 % (2-11); NEUTROPHILS 14.8 % (40-80); RBC 2.71 10x6/uL (4.20-6.10); RDW 16.3 % (11.5-14.5)
[2020-03-31 05:24] LABS: WBC 3.2 10x3/uL (4.8-10.8)
[2020-03-31 05:25] LABS: PLATELET COUNT 29 10x3/uL (130-400)
[2020-03-31 05:29] LABS: INR 1.2 (0.85-1.17); PROTIME 15.1 SECONDS (11.6-15.0)
[2020-03-31 05:36] LABS: ANION GAP 15.9 mmol/L (8-16); CALCIUM 7.7 mg/dL (8.5-10.1); CARBON DIOXIDE 20.1 mmol/L (21.0-32.0); CREATININE - SERUM 1.9 mg/dL (0.6-1.3); PHOSPHOROUS 3.7 mg/dL (2.5-4.9)
--- NOTE | 2020-03-31 07:27 | NUR ---
PLT COUNT 29 AN INCREASE FROOM 27 ON 9-4
--- NOTE | 2020-03-31 07:59 | NUR ---
RESTING IN BED, NO DISTRESS NOTED, IV INFUSING, TELE IN PLACE, CONT TO MONITOR LABS
[2020-03-31 10:14] LABS: ALBUMIN 2.8 g/dL (3.4-5.0); ANION GAP 14.1 mmol/L (8-16); BILIRUBIN - TOTAL 0.6 mg/dL (0.2-1.3); CALCIUM 7.6 mg/dL (8.5-10.1); CARBON DIOXIDE 21.4 mmol/L (21.0-32.0); CREATININE - SERUM 1.7 mg/dL (0.6-1.3); POTASSIUM - SERUM 4.5 mmol/L (3.5-5.1); PROTEIN - SERUM 5.8 g/dL (6.4-8.2)
[2020-03-31 10:26] VITALS: BP 109/62
[2020-03-31 10:30] LABS: HEMOGLOBIN 8.7 g/dL (13.5-17.5)
[2020-03-31 11:00] VITALS: BP 125/57
--- NOTE | 2020-03-31 15:11 | NUR ---
BLADDER SCAN FOR 131CC,
[2020-03-31 16:37] LABS: HEMATOCRIT 25.6 % (42.0-54.0); HEMOGLOBIN 8.5 g/dL (13.5-17.5)
[2020-03-31 17:35] VITALS: BP 124/68
--- NOTE | 2020-03-31 18:09 | NUR ---
PT C/O CHILLS, AFEBRILE AT 98.1, CONT TO MONITOR, PROVIDED TYLENOL FOR COMFORT
[2020-03-31 21:22] VITALS: BP 120/68
[2020-03-31 22:21] VITALS: BP 122/68
[2020-03-31 22:23] LABS: HEMATOCRIT 24.6 % (42.0-54.0); HEMOGLOBIN 8.2 g/dL (13.5-17.5)
[2020-04-01 01:07] VITALS: BP 99/47
[2020-04-01 06:13] LABS: HEMATOCRIT 25.1 % (42.0-54.0); HEMOGLOBIN 8.2 g/dL (13.5-17.5); MCH 30.1 pg (26.0-34.0); MCHC 32.7 g/dL (31.0-37.0); MCV 92.3 fL (80.0-100.0); MEAN PLATELET VOLUME 12.7 fL (7.4-10.4); RBC 2.72 10x6/uL (4.20-6.10); RDW 16.3 % (11.5-14.5); WBC 3.5 10x3/uL (4.8-10.8)
[2020-04-01 06:17] LABS: PLATELET COUNT 29 10x3/uL (130-400)
[2020-04-01 06:49] VITALS: BP 99/47
[2020-04-01 06:52] LABS: LYMPHOCYTES 46 % (15-50); NEUTROPHILS 53 % (40-80); PLATELET ESTIMATE DECREASED
[2020-04-01 07:04] LABS: ANION GAP 14.2 mmol/L (8-16); CALCIUM 7.3 mg/dL (8.5-10.1); CARBON DIOXIDE 20.8 mmol/L (21.0-32.0); CREATININE - SERUM 1.5 mg/dL (0.6-1.3); MAGNESIUM - SERUM 1.6 mg/dL (1.8-2.4); PHOSPHOROUS 3.6 mg/dL (2.5-4.9)
[2020-04-01 09:03] VITALS: BP 111/52
--- NOTE | 2020-04-01 09:29 | NUR ---
PT ALERT X 4. BREATH SOUNDS CLEAR BILAT, 2L O2 PER NC, PT REPORTING SOB. IV TO LEFT FOREARM, PATENT, DRESSING CDI. TELEMETRY IN PLACE. ABDOMEN DISTENDED AND FIRM. PT REPORTING NO PAIN AT THIS TIME. AT BEDSIDE. BED LOW, CALL LIGHT IN REACH. NO OTHER NEEDS AT THIS TIME.
[2020-04-01 12:53] VITALS: BP 122/63
[2020-04-01 12:58] LABS: HEMATOCRIT 26.6 % (42.0-54.0); HEMOGLOBIN 8.6 g/dL (13.5-17.5)
[2020-04-01 16:53] LABS: HEMATOCRIT 26.4 % (42.0-54.0); HEMOGLOBIN 8.7 g/dL (13.5-17.5)
[2020-04-01 17:31] VITALS: BP 123/58
--- NOTE | 2020-04-01 21:00 | NUR ---
RESTING QUEITLY WITH NO DISTRESS NOTED. RESP UNALBORED. SL TO RFA INTACT WITHOUT REDNESS OR EDEMA NOTED. CL IN REACH
[2020-04-01 22:42] LABS: HEMATOCRIT 24.9 % (42.0-54.0); HEMOGLOBIN 8.2 g/dL (13.5-17.5)
[2020-04-01 23:19] VITALS: BP 135/51
[2020-04-02 03:24] VITALS: BP 118/52
--- NOTE | 2020-04-02 05:10 | NUR ---
I have reviewed this patient and I concur with the Shift Assessment completed by the Licensed Practical Nurse today this shift.
[2020-04-02 05:40] LABS: BASOPHILS 0.2 % (0-2); EOSINOPHILS 0 % (0-7); HEMATOCRIT 25.4 % (42.0-54.0); HEMOGLOBIN 8.3 g/dL (13.5-17.5); IMMATURE GRANULOCYTES 0.7 % (0-5); LYMPHOCYTES 64.2 % (15-50); MCH 29.6 pg (26.0-34.0); MCHC 32.7 g/dL (31.0-37.0); MCV 90.7 fL (80.0-100.0); MEAN PLATELET VOLUME 12.2 fL (7.4-10.4); MONOCYTES 17.4 % (2-11); NEUTROPHILS 17.5 % (40-80); RDW 15.7 % (11.5-14.5); WBC 4.1 10x3/uL (4.8-10.8)
[2020-04-02 05:55] LABS: ANION GAP 14.8 mmol/L (8-16); CARBON DIOXIDE 22.8 mmol/L (21.0-32.0); CREATININE - SERUM 1.4 mg/dL (0.6-1.3); MAGNESIUM - SERUM 1.6 mg/dL (1.8-2.4); POTASSIUM - SERUM 4.6 mmol/L (3.5-5.1)
[2020-04-02 06:05] LABS: PLATELET COUNT 37 10x3/uL (130-400)
[2020-04-02 06:40] VITALS: BP 106/53
[2020-04-02 09:22] VITALS: BP 103/43
--- NOTE | 2020-04-02 10:42 | NUR ---
PT SITTING ON SIDE OF BED FINISHING UP BREAKFAST. NO S/SX OF DISTRESS, ADMNISTERED SCHEDULED MEDICATIONS, PT IN NEUTROPENIC ISOLATION STATES HE IS TO HAVE BONE MARROW BIOPSY TOMORROW. IV I LEFT FA SL. LUNGS CLEAR TO AUSCULATION. CONTINUE WITH PLAN OF CARE
--- NOTE | 2020-04-02 11:33 | NUR ---
ADMINISTERED SCHEDULED MEDICATIONS, PT STATES HE FEELS VERY TIRED AND SHORT OF BREATH TODAY, LUNG SOUNDS CLEAR, WILL RELAY MESSAGE TO HOSPITALIST
[2020-04-02 13:05] VITALS: BP 113/35
[2020-04-02 17:54] VITALS: BP 125/59
--- NOTE | 2020-04-02 18:45 | NUR ---
I have reviewed this patient and I concur with the Shift Assessment completed by the Licensed Practical Nurse today this shift.
--- NOTE | 2020-04-02 19:43 | NUR ---
alert and orented at bedside. iv to left fore arm. remains on revers isolation. water and call light in reach no needs at this time.
[2020-04-02 20:00] VITALS: BP 123/62
[2020-04-03] VITALS: BP 117/54
[2020-04-03 04:00] VITALS: BP 97/46
[2020-04-03 06:34] LABS: HEMATOCRIT 26.1 % (42.0-54.0); HEMOGLOBIN 8.5 g/dL (13.5-17.5); MCH 29.4 pg (26.0-34.0); MCHC 32.6 g/dL (31.0-37.0); MCV 90.3 fL (80.0-100.0); RBC 2.89 10x6/uL (4.20-6.10); RDW 15.8 % (11.5-14.5)
[2020-04-03 06:51] LABS: WBC 5.4 10x3/uL (4.8-10.8)
[2020-04-03 06:52] LABS: APTT 25.4 SECONDS (22.8-39.4); INR 1.15 (0.85-1.17); PLATELET COUNT 42 10x3/uL (130-400); PROTIME 14.6 SECONDS (11.6-15.0)
[2020-04-03 07:05] LABS: ANION GAP 15.1 mmol/L (8-16); CALCIUM 7.7 mg/dL (8.5-10.1); CARBON DIOXIDE 22.4 mmol/L (21.0-32.0); CREATININE - SERUM 1.4 mg/dL (0.6-1.3); MAGNESIUM - SERUM 1.4 mg/dL (1.8-2.4); PHOSPHOROUS 4.6 mg/dL (2.5-4.9); POTASSIUM - SERUM 4.5 mmol/L (3.5-5.1)
--- NOTE | 2020-04-03 07:15 | NUR ---
CRITICAL LAB PLATELET COUNT 42 THIS AM UP FROM 97-20 AT 37
[2020-04-03 08:55] VITALS: BP 107/57
[2020-04-03 13:01] LABS: LYMPHOCYTES 47 % (15-50); MONOCYTES 19 % (2-11); NEUTROPHILS 33 % (40-80); PLATELET ESTIMATE DECREASED
[2020-04-03 13:02] LABS: ANISOCYTOSIS 1+
[2020-04-03 13:19] VITALS: BP 98/56
[2020-04-03 13:59] VITALS: Ht 180.3 cm; Wt 76.0 kg
[2020-04-03 17:06] VITALS: BP 112/43
--- NOTE | 2020-04-03 18:45 | NUR ---
I have reviewed this patient and I concur with the Shift Assessment completed by the Licensed Practical Nurse today this shift.
--- NOTE | 2020-04-03 19:45 | NUR ---
ALERT AND ORENTED UP WITH STAND BY ASSIST. AT BEDSIDE. WATER AND CALL LIGHT IN REACH. REMAINS ON NEUTROPENIC ISOLATION. IV TO LEFT FOREARM IN PLACE AND PATEN.NO NEEDS AT THIS TIME.
[2020-04-03 20:00] VITALS: BP 117/58
[2020-04-04] VITALS: BP 103/49
[2020-04-04 04:00] VITALS: BP 98/45
[2020-04-04 05:20] LABS: CALCIUM 8.1 mg/dL (8.5-10.1); CARBON DIOXIDE 23.8 mmol/L (21.0-32.0); CREATININE - SERUM 1.4 mg/dL (0.6-1.3); MAGNESIUM - SERUM 1.6 mg/dL (1.8-2.4); PHOSPHOROUS 4.1 mg/dL (2.5-4.9); POTASSIUM - SERUM 4.8 mmol/L (3.5-5.1)
[2020-04-04 05:30] LABS: BASOPHILS 0.1 % (0-2); EOSINOPHILS 0 % (0-7); HEMATOCRIT 24.9 % (42.0-54.0); HEMOGLOBIN 8.3 g/dL (13.5-17.5); IMMATURE GRANULOCYTES 0.4 % (0-5); LYMPHOCYTES 64.3 % (15-50); MCH 30.3 pg (26.0-34.0); MCHC 33.3 g/dL (31.0-37.0); MCV 90.9 fL (80.0-100.0); MEAN PLATELET VOLUME 11.1 fL (7.4-10.4); MONOCYTES 16.7 % (2-11); NEUTROPHILS 18.5 % (40-80); RBC 2.74 10x6/uL (4.20-6.10)
[2020-04-04 05:53] LABS: PLATELET COUNT 45 10x3/uL (130-400)
--- NOTE | 2020-04-04 06:16 | NUR ---
PLATELET COUNT 45 THIS AM INCREASED FROM 42 ON 04-03-20
--- NOTE | 2020-04-04 07:29 | NUR ---
PATIENT MAGNESIUM LOW, REPLACE PER PROTOCOL, PT HAD SLIGHT NOSE BLEED THIS MORNING, WILL CONTINUE WITH PLAN OF CARE
[2020-04-04 09:36] VITALS: BP 112/59
[2020-04-04 13:24] VITALS: BP 116/59
[2020-04-04] MEDS ORDERED: VIBRAMYCIN 100100 MG PO (14:45)
--- NOTE | 2020-04-04 14:58 | MORECARE ---
CASE MANAGEMENT DISCHARGE SUMMARY PATIENT: DARLENE MITCHELL UNIT: [id number] ADM DATE: 03/29/20 AGE: 74 : 47 SEX: M ROOM/BED: D.2202 AUTHOR: AMY APPLE PHYSICIAN: REFERRING PHYSICIAN: TEJAL GARVEY MD DATE OF SERVICE: 04/04/20 Discharge Plan Patient Name: DARLENE MITCHELL Facility: [facility]:[place] : 1945 Planned Disposition: Home Anticipated Discharge Date: 04/04/20 Discharge Date: Expected LOS: 6 Initial Reviewer: [email or web address] Initial Review Date: 03/29/2020 Generated: 04/04/20 3:57 pm Patient Name: DARLENE MITCHELL Page 25257 at 1458 All edits/amendments must be made on the electronic document DICTATION DATE: 04/04/201456 SOCIAL STAFF WORKER: LESLIE 04/04/207 RPT#: [id number] DC DATE: STATUS: ADM IN [facility] [address] [place] [address] END OF REPORT
--- NOTE | 2020-04-04 15:21 | MORECARE ---
CASE MANAGEMENT DISCHARGE SUMMARY PATIENT: DARLENE MITCHELL UNIT: [id number] ADM DATE: 03/29/20 AGE: 74 : 47 SEX: M ROOM/BED: D.2202 AUTHOR: AMY APPLE PHYSICIAN: REFERRING PHYSICIAN: TEJAL GARVEY MD DATE OF SERVICE: 04/04/20 Discharge Plan Patient Name: DARLENE MITCHELL [facility] [facility] 1945 Planned Disposition: Home Anticipated Discharge Date: 04/04/20 Discharge Date: Expected LOS: 6 Initial Reviewer: [email or web address] Initial Review Date: 03/29/2020 Generated: 04/04/20 4:21 pm DCPIA - Discharge Planning Initial Assessment Updated by [email or web address]: Papo Phillips on 04/04/20 3:17 pm * Is the patient Alert and Oriented? Yes * How many steps to enter\exit or inside your home? 3/6 * PCP Dr. Jerson Ferrell MD * [facility] * Preadmission Environment Home with Family * ADLs Independent * Equipment None * Other Equipment n/a * List name and contact numbers for known caregivers / representatives who currently or will assist patient after discharge: Tatyana Blas (spouse) [phone] * Verbal permission to speak to the caregivers and representatives has been obtained from the patient. Yes * Community resources currently utilized None * Please name any agencies selected above. n/a * Additional services required to return to the preadmission environment? No * Can the patient safely return to the preadmission environment? Yes * Has this patient been hospitalized within the prior 30 days at any hospital? No Last DP export: 04/04/20 1:58 pm Patient Name: DARLENE MITCHELL Page [phone] at 1521 All edits/amendments must be made on the electronic document DICTATION DATE: 04/04/201520 CHISEL TRIMMER: LESLIE 04/04/20 152 RPT#: [id number] DC DATE: STATUS: ADM IN [facility] [address] [place] [address] END OF REPORT
--- NOTE | 2020-04-04 15:32 | MORECARE ---
CASE MANAGEMENT DISCHARGE SUMMARY PATIENT: DARLENE MITCHELL UNIT: [id number] ADM DATE: 03/29/20 AGE: 74 : 47 SEX: M ROOM/BED: D.2202 AUTHOR: AMY APPLE PHYSICIAN: REFERRING PHYSICIAN: TEJAL GARVEY MD DATE OF SERVICE: 04/04/20 Discharge Plan Patient Name: DARLENE MITCHELL Facility: [facility]:[place] : 1945 Planned Disposition: Home Anticipated Discharge Date: 04/04/20 Discharge Date: Expected LOS: 6 Initial Reviewer: [email or web address] Initial Review Date: 03/29/2020 Generated: 04/04/20 4:31 pm Comments DCP- Discharge Planning Updated by [email or web address]: Papo Phillips on 04/04/20 2:[address] Patient Name: DARLENE MITCHELL Admission Status: ER Accout number: [id number] Admission Date: 03-29-2020 : 1945 Admission Diagnosis:OTHER PANCYTOPENIA Attending: AGUILA GARVEY Current LOS: 6 Anticipated DC Date: 04-04-2020 Planned Disposition: Home Primary Insurance: [employer] MEDICARE PPO or HMO Discharge Planning Comments: CM met with patient to complete initial dc planning assessment. CM educated patient on the CM role and verbal consent given by patient to complete assessment. CM verified patient's address, phone number, and emergency contact phone numbers. Patient has recently moved in with his step-daughter and lives in her basement with his spouse. Patient declares this to be a safe environment despite the 3 stairs into the home and 6 stairs to the basement. Patient states there are hand rails and he is yet able-bodied. Patient plans to return to this new home environment upon discharge. New Address is [address] [place] [address]. CM discussed availability of home health, rehab services, and medical equipment. Patient claims no medical equipment is needed and that he does not have medical equipment at home, despite diagnosis of DIONICIO. Patient denied known discharge needs at this time. Transportation provider at discharge will be with his spouse Mrs. Tatyana Blas. CM will continue to follow and will assist as needed with dc plans/needs. Clinical Data Analyst: Papo Phillips DCPIA - Discharge Planning Initial Assessment Updated by [email or web address]: Papo Phillips on 04/04/20 3:17 pm * Is the patient Alert and Oriented? Yes * How many steps to enter\exit or inside your home? 3/6 * PCP Dr. Jerson Ferrell MD * [facility] * Preadmission Environment Home with Family * ADLs Independent * Equipment None * Other Equipment n/a * List name and contact numbers for known caregivers / representatives who currently or will assist patient after discharge: Tatyana Blas (spouse) [phone] * Verbal permission to speak to the caregivers and representatives has been obtained from the patient. Yes * Community resources currently utilized None * Please name any agencies selected above. n/a * Additional services required to return to the preadmission environment? No * Can the patient safely return to the preadmission environment? Yes * Has this patient been hospitalized within the prior 30 days at any hospital? No Coverage Notice Reviewer: [id number] - Papo Phillips Notice Issued Date-Time: 04/04/2020 14:30 Notice Type: IM Discharge Notice Notice Delivered To: Patient Relationship to Patient: Plastic Joint Maker Name: Delivery Method: HAND - Hand Delivered Rosie Days: Prior Verbal Notification: Recipient Understood Notice: Yes Recipient Signature: Yes Med Rec Note Co-signed by Attending: Coverage Notice Comment: IMM explained, signed, copy given to patient, and original placed in chart. Last DP export: 04/04/20 2:21 pm Patient Name: DARLENE MITCHELL Page 28740 at 1532 All edits/amendments must be made on the electronic document DICTATION DATE: 04/04/20 1531 COLLEGE PRESIDENT: LESLIE 04/04/20 1531 RPT#: [id number] DC DATE: STATUS: ADM IN [facility] [address] [place] [address] END OF REPORT
[2020-04-04] MEDS ORDERED: CYANOCOBAL1000 MCG/4 IM (16:09)
--- NOTE | 2020-04-05 09:28 | MORECARE ---
CASE MANAGEMENT DISCHARGE SUMMARY PATIENT: DARLENE MITCHELL UNIT: [id number] ADM DATE: 03/29/20 AGE: 74 : 47 SEX: M ROOM/BED: D.2202 AUTHOR: AMY APPLE PHYSICIAN: REFERRING PHYSICIAN: TEJAL GARVEY MD DATE OF SERVICE: 04/05/20 Discharge Plan Patient Name: DARLENE MITCHELL Facility: [facility]:[place] : 1945 Planned Disposition: Home Anticipated Discharge Date: 04/04/20 Discharge Date: 04/04/2020 Expected LOS: 6 Initial Reviewer: [email or web address] Initial Review Date: 03/29/2020 Generated: 04/05/20 10:27 am Comments DCP- Discharge Planning Updated by [email or web address]: Papo Phillips on 04/04/20 2:[address] Patient Name: DARLENE MITCHELL Admission Status: ER Accout number: [id number] Admission Date: 03-29-2020 : 1945 Admission Diagnosis:OTHER PANCYTOPENIA Attending: AGUILA GARVEY Current LOS: 6 Anticipated DC Date: 04-04-2020 Planned Disposition: Home Primary Insurance: [employer] MEDICARE PPO or HMO Discharge Planning Comments: CM met with patient to complete initial dc planning assessment. CM educated patient on the CM role and verbal consent given by patient to complete assessment. CM verified patient's address, phone number, and emergency contact phone numbers. Patient has recently moved in with his step-daughter and lives in her basement with his spouse. Patient declares this to be a safe environment despite the 3 stairs into the home and 6 stairs to the basement. Patient states there are hand rails and he is yet able-bodied. Patient plans to return to this new home environment upon discharge. New Address is [address] [place] [address]. CM discussed availability of home health, rehab services, and medical equipment. Patient claims no medical equipment is needed and that he does not have medical equipment at home, despite diagnosis of DIONICIO. Patient denied known discharge needs at this time. Transportation provider at discharge will be with his spouse Mrs. Tatyana Blas. CM will continue to follow and will assist as needed with dc plans/needs. Wetlands Technician: Papo Phillips DCPIA - Discharge Planning Initial Assessment Updated by [email or web address]: Papo Phillips on 04/04/20 3:17 pm * Is the patient Alert and Oriented? Yes * How many steps to enter\exit or inside your home? 3/6 * PCP Dr. Jerson Ferrell MD * [facility]acy [facility] [address] [facility] * Preadmission Environment Home with Family * ADLs Independent * Equipment None * Other Equipment n/a * List name and contact numbers for known caregivers / representatives who currently or will assist patient after discharge: Tatyana Blas (spouse) [phone] * Verbal permission to speak to the caregivers and representatives has been obtained from the patient. Yes * Community resources currently utilized None * Please name any agencies selected above. n/a * Additional services required to return to the preadmission environment? No * Can the patient safely return to the preadmission environment? Yes * Has this patient been hospitalized within the prior 30 days at any hospital? No Coverage Notice Reviewer: [id number] - Papo Phillips Notice Issued Date-Time: 04/04/2020 14:30 Notice Type: IM Discharge Notice Notice Delivered To: Patient Relationship to Patient: Hospital Educator Name: Delivery Method: HAND - Hand Delivered Rosie Days: Prior Verbal Notification: Recipient Understood Notice: Yes Recipient Signature: Yes Med Rec Note Co-signed by Attending: Coverage Notice Comment: IMM explained, signed, copy given to patient, and original placed in chart. Last DP export: 04/04/20 2:32 pm Patient Name: DARLENE MITCHELL Page 18741 at 0928 All edits/amendments must be made on the electronic document DICTATION DATE: 04/05/20926 SENIOR MECHANICAL DESIGN ENGINEER: LESLIE 04/05/20926 RPT#: [id number] DC DATE:04/04/20 STATUS: DIS IN [facility] [address] [place] [address] END OF REPORT
[2020-04-06 12:11] LABS: RMSF IGM 0.17 index (0.00-0.89)
[2020-04-06 14:11] LABS: EHRLICHIA CHAFF IGM Negative (Neg:<1:20); HGE IGG TITER Negative (Neg:<1:64); HGE IGM TITER Negative (Neg:<1:20)
[2020-04-06 16:09] LABS: F. TULARENSIS - IGG Negative (Negative); F. TULARENSIS - IGM Negative (Negative)
== END 2020-04-04 17:08 | disposition home or self-care (01) | DRG 808 ==
LOC: D.ER 16:14 → D.M2 20:04 → D.MS 20:04 → D.M2 22:35 → D.MS 03-30 12:22
PROVIDERS: Family Medicine; General Practice; Internal Medicine Medical Oncology; Internal Medicine Nephrology; ADMIT Emergency Medicine; ATTEND Emergency Medicine
PROC: 07DR3ZX Extraction of Iliac Bone Marrow, Percutaneous Approach, Diagnostic (ICD-10-PCS; principal; 2020-04-03 10:00)
DX: D61.818 Other pancytopenia (principal); N17.0 Acute kidney failure with tubular necrosis; N40.0 Benign prostatic hyperplasia without lower urinary tract symptoms; G47.33 Obstructive sleep apnea (adult) (pediatric); E11.9 Type 2 diabetes mellitus without complications; D64.9 Anemia, unspecified; E87.5 Hyperkalemia; Z95.0 Presence of cardiac pacemaker; R10.9 Unspecified abdominal pain; R16.1 Splenomegaly, not elsewhere classified; E55.9 Vitamin D deficiency, unspecified; E83.42 Hypomagnesemia

== ENCOUNTER 2020-04-21 17:11 | Inpatient (IN) | payer OTHER ==
[~2020-04-21] VITALS: Ht 180.3 cm; Wt 72.0 kg
[~2020-04-21 17:11] MED LIST changes: +CYANOCOBAL1000 MCG/4 IM; +VIBRAMYCIN 100100 MG PO
[2020-04-21 17:58] LABS: HEMATOCRIT 35.6 % (42.0-54.0); HEMOGLOBIN 11.6 g/dL (13.5-17.5); MCH 30.6 pg (26.0-34.0); MCHC 32.6 g/dL (31.0-37.0); MCV 93.9 fL (80.0-100.0); MEAN PLATELET VOLUME 11.1 fL (7.4-10.4); RBC 3.79 10x6/uL (4.20-6.10); RDW 17.3 % (11.5-14.5); WBC 17.4 10x3/uL (4.8-10.8)
[2020-04-21 18:01] LABS: CALC OSMOLALITY 274 mosm/kg (275-300); CALCIUM 8.8 mg/dL (8.5-10.1); CARBON DIOXIDE 22.9 mmol/L (21.0-32.0); CHLORIDE - SERUM 105 mmol/L (98-107); CREATININE - SERUM 1.3 mg/dL (0.6-1.3); GLUCOSE 140 mg/dL (74-106); PLATELET COUNT 143 10x3/uL (130-400); POTASSIUM - SERUM 4.8 mmol/L (3.5-5.1); SODIUM 135 mmol/L (136-145); UREA NITROGEN 20 mg/dL (7-18); eGFR NON AFRICAN AMERICAN 58 mL/min (90-120)
--- NOTE | 2020-04-21 18:03 | NUR ---
PT VOIDED 300 ML IN URINAL
[2020-04-21 18:10] LABS: ALBUMIN 3.8 g/dL (3.4-5.0); ALKALINE PHOSPHATASE 98 U/L (30-120); ALT (SGPT) 21 U/L (10-68); AMYLASE - SERUM 67 U/L (25-115); LIPASE 164 U/L (73-393); PROTEIN - SERUM 6.7 g/dL (6.4-8.2)
[2020-04-21 18:11] LABS: TROPONIN-I < 0.017 ng/mL (0.000-0.060)
[2020-04-21 18:27] LABS: LYMPHOCYTES 61 % (15-50); MONOCYTES 10 % (2-11); NEUTROPHILS 28 % (40-80); PLATELET ESTIMATE NORMAL
[2020-04-21 19:44] LABS: BILIRUBIN NEGATIVE (NEGATIVE); KETONE NEGATIVE (NEGATIVE); NITRITE NEGATIVE (NEGATIVE); UROBILINOGEN NORMAL mg/dL (< 2)
--- NOTE | 2020-04-21 20:15 | NUR ---
LAB CALLED FOR ETA ON CULTURES TO BE DRAWN.
--- NOTE | 2020-04-21 21:08 | NUR ---
PT INSULIN NOT GIVE DUE TO CBG OF 140.
--- NOTE | 2020-04-21 21:08 | NUR ---
RADIOLOGY AT BEDSIDE FOR X-XAY FOR NG TUBE PLACEMENT.
[2020-04-21 21:09] VITALS: BP 130/71
--- NOTE | 2020-04-21 21:28 | NUR ---
PER NG TUBEPLACEMENT IS INTACT.
[2020-04-21 22:19] VITALS: BP 126/65; BMI 22.1
--- NOTE | 2020-04-21 22:30 | NUR ---
PATIENT TRANSFERED TO ROOM 2205, PATIENT AAOX4, C/O ABDOMINAL DISCOMFORT, NG TO LIWS INTACT, SCD'S ON, INITIAL ASSESSMENT COMPLETED, DENIES NEEDS AT THIS TIME, SPOUSE AT BEDSIDE, WILL CONTINUE TO MONITOR PATIENT, CALL LIGHT WITHIN REACH
[2020-04-22 04:00] VITALS: BP 118/56
[2020-04-22 06:22] LABS: BASOPHILS 0.1 % (0-2); EOSINOPHILS 0.1 % (0-7); HEMATOCRIT 32.3 % (42.0-54.0); HEMOGLOBIN 10.4 g/dL (13.5-17.5); MCH 30.1 pg (26.0-34.0); MCHC 32.2 g/dL (31.0-37.0); MCV 93.6 fL (80.0-100.0); MEAN PLATELET VOLUME 10.9 fL (7.4-10.4); PLATELET COUNT 115 10x3/uL (130-400); RBC 3.45 10x6/uL (4.20-6.10); RDW 17.4 % (11.5-14.5); WBC 16.6 10x3/uL (4.8-10.8)
[2020-04-22 07:00] LABS: ALBUMIN 3.2 g/dL (3.4-5.0); BILIRUBIN - TOTAL 0.47 mg/dL (0.2-1.3); CALCIUM 8.3 mg/dL (8.5-10.1); CARBON DIOXIDE 23.1 mmol/L (21.0-32.0); CREATININE - SERUM 1.2 mg/dL (0.6-1.3); PROTEIN - SERUM 6.1 g/dL (6.4-8.2)
[2020-04-22 07:01] LABS: ANION GAP 13.7 mmol/L (8-16); POTASSIUM - SERUM 3.8 mmol/L (3.5-5.1)
[2020-04-22 08:00] VITALS: BP 133/76
[2020-04-22 12:16] VITALS: BP 126/71
[2020-04-22 13:37] LABS: APTT 25.4 SECONDS (22.8-39.4); INR 1.06 (0.85-1.17); PROTIME 13.8 SECONDS (11.6-15.0)
--- NOTE | 2020-04-22 14:59 | NUR ---
PT RESTING IN BED. AT BEDSIDE. NG TUBE TO LEFT NARE SET TO LIWS. NO NEEDS AT THIS TIME
[2020-04-22 15:00] VITALS: BP 133/83
[2020-04-22 20:00] VITALS: BP 141/77
[2020-04-23] VITALS: BP 133/61
[2020-04-23 04:00] VITALS: BP 132/64
[2020-04-23 05:44] LABS: HEMATOCRIT 33.3 % (42.0-54.0); HEMOGLOBIN 10.7 g/dL (13.5-17.5); MCH 30.2 pg (26.0-34.0); MCHC 32.1 g/dL (31.0-37.0); MCV 94.1 fL (80.0-100.0); MEAN PLATELET VOLUME 10.5 fL (7.4-10.4); PLATELET COUNT 109 10x3/uL (130-400); RBC 3.54 10x6/uL (4.20-6.10); RDW 17.4 % (11.5-14.5); WBC 12.6 10x3/uL (4.8-10.8)
[2020-04-23 06:09] LABS: ANION GAP 11.5 mmol/L (8-16); BILIRUBIN - TOTAL 0.56 mg/dL (0.2-1.3); CARBON DIOXIDE 23.1 mmol/L (21.0-32.0); CREATININE - SERUM 1.1 mg/dL (0.6-1.3); MAGNESIUM - SERUM 1.8 mg/dL (1.8-2.4); POTASSIUM - SERUM 3.6 mmol/L (3.5-5.1); PROTEIN - SERUM 5.9 g/dL (6.4-8.2)
[2020-04-23 08:13] VITALS: BP 130/73
[2020-04-23 09:43] LABS: ANISOCYTOSIS OCC; HYPOCHROMASIA OCC; LYMPHOCYTES 44 % (15-50); MONOCYTES 19 % (2-11); NEUTROPHILS 32 % (40-80); PLATELET ESTIMATE DECREASED; ROULEAUX OCC; SMUDGE CELLS OCC
[2020-04-23 12:04] VITALS: BP 154/85
[2020-04-23 13:07] VITALS: Ht 180.3 cm; Wt 72.0 kg
--- NOTE | 2020-04-23 13:12 | NUR ---
IV BEEPING,PUMP RESET. PATIENT DENIES NEEDS.CALL LIGHT IN REACH
[2020-04-23 16:00] VITALS: BP 128/82
--- NOTE | 2020-04-23 16:25 | NUR ---
NG TUBE DC AT THIS TIME TOLERATED WELL. 100 ML NOTED TO CANISTER. AMD C/L IN REACH AT BEDSIDE.
[2020-04-23 20:00] VITALS: BP 131/65
[2020-04-24 04:00] VITALS: BP 121/76
[2020-04-24 06:54] LABS: ANION GAP 12.7 mmol/L (8-16); BILIRUBIN - TOTAL 0.59 mg/dL (0.2-1.3); CALCIUM 8.1 mg/dL (8.5-10.1); CARBON DIOXIDE 24.1 mmol/L (21.0-32.0); CREATININE - SERUM 1.1 mg/dL (0.6-1.3); MAGNESIUM - SERUM 1.8 mg/dL (1.8-2.4); POTASSIUM - SERUM 3.8 mmol/L (3.5-5.1)
[2020-04-24 06:58] LABS: HEMATOCRIT 33.2 % (42.0-54.0); HEMOGLOBIN 10.4 g/dL (13.5-17.5); MCH 29.5 pg (26.0-34.0); MCHC 31.3 g/dL (31.0-37.0); MCV 94.3 fL (80.0-100.0); MEAN PLATELET VOLUME 10.7 fL (7.4-10.4); PLATELET COUNT 105 10x3/uL (130-400); RBC 3.52 10x6/uL (4.20-6.10); RDW 17.5 % (11.5-14.5)
[2020-04-24 08:58] VITALS: BP 156/87
[2020-04-24 12:17] LABS: EOSINOPHILS 2 % (0-7); LYMPHOCYTES 58 % (15-50); MONOCYTES 11 % (2-11); NEUTROPHILS 21 % (40-80); PLATELET ESTIMATE DECREASED
[2020-04-24 12:18] LABS: ANISOCYTOSIS OCC; HYPOCHROMASIA OCC; ROULEAUX OCC
--- NOTE | 2020-04-24 13:19 | MORECARE ---
CASE MANAGEMENT DISCHARGE SUMMARY PATIENT: DARLENE MITCHELL UNIT: [id number] ADM DATE: 04/21/20 AGE: 74 : 47 SEX: M ROOM/BED: D.2205 AUTHOR: AMY APPLE PHYSICIAN: REFERRING PHYSICIAN: KIAH MCCARTHY DO DATE OF SERVICE: 04/24/20 Discharge Plan Patient Name: DARLENE MITCHELL [facility] [facility] 1945 Planned Disposition: Anticipated Discharge Date: Discharge Date: Expected LOS: Initial Reviewer: [email or web address] Initial Review Date: 04/21/2020 Generated: 04/24/20 2:18 pm Comments DCP- Discharge Planning Updated by [email or web address]: Yue Naranjo on 04/24/20 12:14 pm RICHARD THAKUR WITH [facility] CALLED AND REQUESTED AN UPDATE SHE STATED THAT IF HE NEEDED ANYTHING TO CALL HER AT [phone] Patient Name: DARLENE MITCHELL Page 79545 at 1319 All edits/amendments must be made on the electronic document DICTATION DATE: 04/24/20 1318 REFRIGERATION MECHANIC: LESLIE 04/24/20 1318 RPT#: [id number] DC DATE: STATUS: ADM IN [facility] [address] [place] [address] END OF REPORT
[2020-04-24 18:09] VITALS: BP 138/72
--- NOTE | 2020-04-24 18:58 | NUR ---
0700 BEDSIDE REPORT RECEIVED ASSESSMENT COMPLETE REMAINS AT BEDSIDE
--- NOTE | 2020-04-24 18:59 | NUR ---
1700 AMBULATION AROUND HALLS WITH AT SIDE TOLERATED WELL
[2020-04-24 20:00] VITALS: BP 146/75
[2020-04-25 04:00] VITALS: BP 118/68
[2020-04-25 06:28] LABS: BASOPHILS 0.1 % (0-2); EOSINOPHILS 0.3 % (0-7); HEMATOCRIT 32.1 % (42.0-54.0); HEMOGLOBIN 10.3 g/dL (13.5-17.5); IMMATURE GRANULOCYTES 0.2 % (0-5); LYMPHOCYTES 73.6 % (15-50); MCH 29.9 pg (26.0-34.0); MCHC 32.1 g/dL (31.0-37.0); MCV 93.3 fL (80.0-100.0); MEAN PLATELET VOLUME 10.4 fL (7.4-10.4); NEUTROPHILS 16.8 % (40-80); RBC 3.44 10x6/uL (4.20-6.10); RDW 17.2 % (11.5-14.5); WBC 12.2 10x3/uL (4.8-10.8)
[2020-04-25 06:42] LABS: PLATELET COUNT 95 10x3/uL (130-400)
[2020-04-25 06:52] LABS: ALBUMIN 3.1 g/dL (3.4-5.0); ALKALINE PHOSPHATASE 80 U/L (30-120); ALT (SGPT) 14 U/L (10-68); BILIRUBIN - TOTAL 0.45 mg/dL (0.2-1.3); CALC OSMOLALITY 277 mosm/kg (275-300); CALCIUM 7.9 mg/dL (8.5-10.1); CARBON DIOXIDE 23.4 mmol/L (21.0-32.0); CHLORIDE - SERUM 109 mmol/L (98-107); GLUCOSE 91 mg/dL (74-106); MAGNESIUM - SERUM 1.7 mg/dL (1.8-2.4); POTASSIUM - SERUM 3.8 mmol/L (3.5-5.1); PROTEIN - SERUM 5.8 g/dL (6.4-8.2); SODIUM 140 mmol/L (136-145); UREA NITROGEN 11 mg/dL (7-18); eGFR NON AFRICAN AMERICAN 78 mL/min (90-120)
[2020-04-25 09:21] VITALS: BP 156/92
--- NOTE | 2020-04-25 10:40 | NUR ---
PATIENT RECIEVED DC INSTRUCTIONS. VERBALIZED UNDERSTANDING. NO QUESTIONS AT THIS TIME. IV REMOVED WITH CATH TIP INTACT. FAMILY AT SIDE. CALL LIGHT WITHIN REACH.
--- NOTE | 2020-04-25 11:00 | MORECARE ---
CASE MANAGEMENT DISCHARGE SUMMARY PATIENT: DARLENE MITCHELL UNIT: [id number] ADM DATE: 04/21/20 AGE: 74 : 47 SEX: M ROOM/BED: D.2205 AUTHOR: AMY APPLE PHYSICIAN: REFERRING PHYSICIAN: KIAH MCCARTHY DO DATE OF SERVICE: 04/25/20 Discharge Plan Patient Name: DARLENE MITCHELL [facility] [facility] 1945 Planned Disposition: Home Anticipated Discharge Date: Discharge Date: Expected LOS: Initial Reviewer: [email or web address] Initial Review Date: 04/21/2020 Generated: 04/25/20 12:00 pm Comments DCP- Discharge Planning Updated by [email or web address]: Yue Naranjo on 04/24/20 12:14 pm RICHARD THAKUR WITH [facility] CALLED AND REQUESTED AN UPDATE SHE STATED THAT IF HE NEEDED ANYTHING TO CALL HER AT [phone] DCPIA - Discharge Planning Initial Assessment Updated by [email or web address]: Yue Naranjo on 04/25/20 10:56 am * Is the patient Alert and Oriented? Yes * How many steps to enter\exit or inside your home? 3/6 * PCP [place] * Pharmacy [place] [facility] [address] * Preadmission Environment Home with Family * ADLs Independent * Equipment None * List name and contact numbers for known caregivers / representatives who currently or will assist patient after discharge: ONRMA CHAUDHRY [phone] * Verbal permission to speak to the caregivers and representatives has been obtained from the patient. N/A * Community resources currently utilized None * Additional services required to return to the preadmission environment? No * Can the patient safely return to the preadmission environment? Yes * Has this patient been hospitalized within the prior 30 days at any hospital? Yes Last DP export: 04/24/20 12:19 p Patient Name: DARLENE MITCHELL Page [phone] at 1100 All edits/amendments must be made on the electronic document DICTATION DATE: 04/25/20 1100 COMMERCIAL ROOFING ESTIMATOR: LESLIE 04/25/20 1100 RPT#: [id number] DC DATE: STATUS: ADM IN [facility] [address] [place] [address] END OF REPORT
--- NOTE | 2020-04-25 11:00 | NUR ---
ESCORTED PATIENT OUT OF HOSPITAL TO PRIVATE VEHICLE WITH PERSONAL BELONINGS VIA WC.
--- NOTE | 2020-04-25 11:08 | MORECARE ---
CASE MANAGEMENT DISCHARGE SUMMARY PATIENT: DARLENE MITCHELL UNIT: [id number] ADM DATE: 04/21/20 AGE: 74 : 47 SEX: M ROOM/BED: D.2205 AUTHOR: AMY APPLE PHYSICIAN: REFERRING PHYSICIAN: KIAH MCCARTHY DO DATE OF SERVICE: 04/25/20 Discharge Plan Patient Name: DARLENE MITCHELL Facility: [facility]:[place] : 1945 Planned Disposition: Home Anticipated Discharge Date: Discharge Date: Expected LOS: Initial Reviewer: [email or web address] Initial Review Date: 04/21/2020 Generated: 04/25/20 12:07 pm Comments DCP- Discharge Planning Updated by [email or web address]: Yue Naranjo on 04/25/20 10:[address] Patient Name: DARLENE MITCHELL Admission Status: ER Accout number: [id number] Admission Date: 04-21-2020 : 1945 Admission Diagnosis:UNSPECIFIED ABDOMINAL PAIN Attending: KIAH MCCARTHY Current LOS: 4 Anticipated DC Date: Planned Disposition: Home Primary Insurance: [employer] Discharge Planning Comments: CM met with patient to complete initial dc planning assessment. CM educated patient on the CM role and verbal consent given by patient to complete assessment. Patient lives at home with his spouse where he is independent with his care. At discharge patient plans to return home and feels this is a safe discharge. CM discussed availability of home health, rehab services, and medical equipment. He denies any concerns. He stated that he is having loose stools and he can feel his stomach "rumble". He is ready to go home and his will be his mobile lounge driver or operator home. IMM served and explained. Patient denied known discharge needs at this time. CM will continue to follow and will assist as needed with dc plans/needs. Cloth Doubling Machine Operator: Yue Naranjo DCP- Discharge Planning Updated by [email or web address]: Yue Naranjo on 04/24/20 12:[address] [facility] WITH [facility] CALLED AND REQUESTED AN UPDATE SHE STATED THAT IF HE NEEDED ANYTHING TO CALL HER AT [phone] DCPIA - Discharge Planning Initial Assessment Updated by [email or web address]: Yue Naranjo on 04/25/20 10:56 am * Is the patient Alert and Oriented? Yes * How many steps to enter\\exit or inside your home? 3/6 * PCP [facility] * [facility]acy [place] /[facility] [address] * Preadmission Environment Home with Family * ADLs Independent * Equipment None * List name and contact numbers for known caregivers / representatives who currently or will assist patient after discharge: NORMA CHAUDHRY [phone] * Verbal permission to speak to the caregivers and representatives has been obtained from the patient. N/A * Community resources currently utilized None * Additional services required to return to the preadmission environment? No * Can the patient safely return to the preadmission environment? Yes * Has this patient been hospitalized within the prior 30 days at any hospital? Yes Coverage Notice Reviewer: [email or web address] Brant Naranjo Notice Issued Date-Time: 04/25/2020 10:45 Notice Type: IM Discharge Notice Notice Delivered To: Patient Relationship to Patient: Photographic Engineer Name: Delivery Method: HAND - Hand Delivered Rosie Days: Prior Verbal Notification: Recipient Understood Notice: Yes Recipient Signature: Yes Med Rec Note Co-signed by Attending: Coverage Notice Comment: Last DP export: 04/25/20 10:00 a Patient Name: DARLENE MITCHELL Page 13166 at 1108 All edits/amendments must be made on the electronic document DICTATION DATE: 04/25/201106 AZURE DEVELOPER: LESLIE 04/25/201106 RPT#: [id number] DC DATE: STATUS: ADM IN [facility] [address] [place] [address] END OF REPORT
--- NOTE | 2020-04-26 06:53 | MORECARE ---
CASE MANAGEMENT DISCHARGE SUMMARY PATIENT: DARLENE MITCHELL UNIT: [id number] ADM DATE: 04/21/20 AGE: 74 : 47 SEX: M ROOM/BED: D.2205 AUTHOR: AMY APPLE PHYSICIAN: REFERRING PHYSICIAN: KIAH MCCARTHY DO DATE OF SERVICE: 04/26/20 Discharge Plan Patient Name: DARLENE MITCHELL Facility: [facility]:[place] : 1945 Planned Disposition: Home Anticipated Discharge Date: Discharge Date: 04/25/2020 Expected LOS: Initial Reviewer: [id number] Initial Review Date: 04/21/2020 Generated: 04/26/20 7:52 am Comments DCP- Discharge Planning Updated by [email or web address]: Yue Naranjo on 04/25/20 10:[address] Patient Name: DARLENE MITCHELL Admission Status: ER Accout number: [id number] Admission Date: 04-21-2020 : 1945 Admission Diagnosis:UNSPECIFIED ABDOMINAL PAIN Attending: KIAH MCCARTHY Current LOS: 4 Anticipated DC Date: Planned Disposition: Home Primary Insurance: [employer] Discharge Planning Comments: CM met with patient to complete initial dc planning assessment. CM educated patient on the CM role and verbal consent given by patient to complete assessment. Patient lives at home with his spouse where he is independent with his care. At discharge patient plans to return home and feels this is a safe discharge. CM discussed availability of home health, rehab services, and medical equipment. He denies any concerns. He stated that he is having loose stools and he can feel his stomach "rumble". 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 IMM served and explained. Patient denied known discharge needs at this time. CM will continue to follow and will assist as needed with dc plans/needs. Prescriptionist: Yue Naranjo DCP- Discharge Planning Updated by [email or web address]: Yue Naranjo on 04/24/20 12:[address] [facility] CALLED AND REQUESTED AN UPDATE SHE STATED THAT IF HE NEEDED ANYTHING TO CALL HER AT [phone] DCPIA - Discharge Planning Initial Assessment Updated by [email or web address]: Yue Naranjo on 04/25/20 10:56 am * Is the patient Alert and Oriented? Yes * How many steps to enter\\exit or inside your home? 3/6 * PCP [facility] * Pharmacy [place] /[facility] [address] * Preadmission Environment Home with Family * ADLs Independent * Equipment None * List name and contact numbers for known caregivers / representatives who currently or will assist patient after discharge: NORMA CHAUDHRY [phone] * Verbal permission to speak to the caregivers and representatives has been obtained from the patient. N/A * Community resources currently utilized None * Additional services required to return to the preadmission environment? No * Can the patient safely return to the preadmission environment? Yes * Has this patient been hospitalized within the prior 30 days at any hospital? Yes Coverage Notice Reviewer: [email or web address] Brant Naranjo Notice Issued Date-Time: 04/25/2020 10:45 Notice Type: IM Discharge Notice Notice Delivered To: Patient Relationship to Patient: Pegger Dobby Looms Name: Delivery Method: HAND - Hand Delivered Rosie Days: Prior Verbal Notification: Recipient Understood Notice: Yes Recipient Signature: Yes Med Rec Note Co-signed by Attending: Coverage Notice Comment: Last DP export: 04/25/20 10:07 a Patient Name: DARLENE MITCHELL Page 27930 at 0653 All edits/amendments must be made on the electronic document DICTATION DATE: 04/26/20651 WRAPPER SIZER: LESLIE 04/26/20651 RPT#: [id number] DC DATE:04/25/20 STATUS: DIS IN [facility] [address] [place] [address] END OF REPORT
== END 2020-04-25 12:31 | disposition home or self-care (01) | DRG 389 ==
LOC: D.ER 17:11 → D.MS 20:18
PROVIDERS: Family Medicine; ADMIT Family Medicine; ATTEND Family Medicine
DX: K56.609 Unspecified intestinal obstruction, unspecified as to partial versus complete obstruction (principal); C91.10 Chronic lymphocytic leukemia of B-cell type not having achieved remission; E87.1 Hypo-osmolality and hyponatremia; D64.9 Anemia, unspecified; D69.6 Thrombocytopenia, unspecified; E11.65 Type 2 diabetes mellitus with hyperglycemia; G47.33 Obstructive sleep apnea (adult) (pediatric); N40.0 Benign prostatic hyperplasia without lower urinary tract symptoms; G89.29 Other chronic pain; K21.9 Gastro-esophageal reflux disease without esophagitis; M54.9 Dorsalgia, unspecified; M19.90 Unspecified osteoarthritis, unspecified site; Z95.0 Presence of cardiac pacemaker

== ENCOUNTER → 2021-01-11 10:16 | Outpatient (CLI) | payer OTHER, MEDICARE ==
[2020-06-12 23:57] VITALS: BMI 22.0
[~2021-01-11 10:16] MED LIST changes: +CHEMO; +CIALIS2.5 MG PO; +MULTIVITAMIN PO; +NIASPAN1000 MG PO; +OMEPRAZOLE20 M1 PO; +QUESTRAN LIG1 PACKET PO
== END | disposition home or self-care (01) ==
LOC: D.HCCECHO 10:00
PROVIDERS: ATTEND Internal Medicine Cardiovascular Disease
DX: I10 Essential (primary) hypertension (principal)